=== PATIENT | male | born 1950 | race Caucasian/White ===

== ENCOUNTER 2017-05-01 21:31 | Emergency (ER) | payer MEDICARE, MEDICAID ==
[2017-05-01 21:43] VITALS: BP 108/88
[2017-05-01] MEDS ORDERED: Sodium Chloride 0.9% 10 ML Syringe FLUSH PRN (22:06)
[2017-05-01] MEDS ORDERED: Sodium Chloride 0.9% 1,000 ML IV ONE (22:11)
--- NOTE | 2017-05-01 22:27 | EDM.PDOC ---
ED HPI GENERAL MEDICAL PROBLEM - General Chief Complaint: General Stated Complaint: TROUBLE BREATHING Time Seen by Provider: 05/01/17 21:50 Source of Information: Reports: Patient, Senior Living Records, Other History Limitations: Reports: Other (limited cognition) - History of Present Illness INITIAL COMMENTS - FREE TEXT/NARRATIVE: c/o sob x 1d pt is a former smoker on home O2 at 2 l/min via [place] with h/o COPD and schizophrenia, he was seen by PCP Dr Pérez today with dx of bronchitis and UTI, CxR done, told he did not have a pneumonia, hospitalization recommended which pt declines, given antbx's IM x 2 as per prison staff from [place], had inc'd HR in office altho rate unknown pt comes into tonight requesting to be admitted, HR 171 here, regular intervals april, RBBB, rate decreases to 155 at times, remains regular no CP, no cough, talks complete sentences does show evidence of HF with inc'd edema, inc'd exp phase and slight wheeze possible pneumonia with rales RLL no prior CV ds per pt, [place] records list ASCVD however only cardiac med is ASA, EHR with no prior EKG, no prior troponin or BNP , no prior echo unknown how long pt has had RBBB staff states he has not had been hospitalized in [place], has been at [place] since 2001, hospitalized x 2 here in last several yrs SBP 105 initial, then was 117 rhythm unlikely afib with RVR given very regular intervals, unlikely VT with aberrancy given variable rate, SVT possible altho p-waves are discernable on rhythm strip when HR slows, OH interval 0.18 pt being tx'ed with Z-iris and cephalexin, has had a dose of each today, not on a oral steroid had a suprapubic catheter in past, not now - Related Data Allergies Allergy/AdvReac Type Severity Reaction Status Date / Time nitrofurantoin Allergy Hives Verified 05/01/17 21:37 macrocrystalline [From Macrodantin] norfloxacin Allergy Hives Verified 05/01/17 21:37 Penicillins Allergy Hives Verified 05/01/17 21:37 Home Meds: Home Meds Aspirin [Adult Low Dose Aspirin EC] 81 mg PO DAILY 02/06/13 [History] Clobetasol [Temovate 0.05% Crm] 1 applic TOP KARSTEN@08,20 02/06/13 [History] OLANZapine [Olanzapine] 15 mg PO BID 02/06/13 [History] Sertraline HCl 200 mg PO DAILY 02/06/13 [History] Budesonide/Formoterol Fumarate [Symbicort 160-4.5 Mcg Inhaler] 2 puff INH BID [History] Hydrophilic Ointment [Aquaphilic Ointment] 1 applic TOP BID 04/12/16 [History] Psyllium Husk [Fiber Laxative] 1 tbsp PO DAILY 04/12/16 [History] Tamsulosin HCl 1 tab PO DAILY 04/12/16 [History] diphenhydrAMINE [Benadryl] 25 mg PO BEDTIME 04/12/16 [History] Finasteride 5 mg PO DAILY 04/13/16 [History] Albuterol/Ipratropium [Combivent Respimat] 1 puff INH QID 05/01/17 [History] Azithromycin [Zithromax] 250 mg PO DAILY 05/01/17 [History] Cephalexin 500 mg PO TID 05/01/17 [History] Multivits w-Fe,Other Min/Lut [Theratrum Complete] 1 each PO DAILY 05/01/17 [ History] Past Medical History HEENT History: Reports: Cataract, Macular Degeneration Other HEENT History: myopia, presbyopia,sensorineural hearing loss, bilateral retinal scarring, astigmatism. Loss of hearing in left ear Cardiovascular History: Reports: High Cholesterol Other Cardiovascular History: hyperlipidemia Respiratory History: Reports: Asthma, COPD Gastrointestinal History: Reports: Colon Polyp, Diverticulosis, Gastritis Genitourinary History: Reports: BPH Other Genitourinary History: urethral stricture, urinary retention, urinary retention, urinary incontinence, UTI, bilateral testes atrophy, perineal cystostomy, suprapubic cystostomy (voids perineally), hx of suprapubic cystostomy, hx partial cystectomy, mesh placement at the suprapubic site, hx of urethrotomy, has benign prostatic hyperthropy. Musculoskeletal History: Reports: Amputation, Fracture Other Musculoskeletal History: has prosthetic right lower leg.Pelvic fx. Neurological History: Reports: Cerebral Palsy Other Neuro History: has moderate intellectual disabilities, Psychiatric History: Reports: Depression, Schizophrenia Oncologic (Cancer) History: Reports: Other (See Below) Other Oncologic History: tubular adenoma (pre-malignant polyp) Dermatologic History: Reports: Psoriasis - Infectious Disease History Infectious Disease History: Reports: Chicken Pox, Measles - Past Surgical History Respiratory Surgical History: Reports: Tracheostomy Other Respiratory Surgeries/Procedures: pt was a former smoker for 20 years consuming 5 packs a day. Quit smoking 3 years ago. Social & Family History - Family History Family Medical History: Noncontributory - Tobacco Use Smoking Status *Q: Unknown Ever Smoked Years of Tobacco use: 40 Packs/Tins Daily: 4 Used Tobacco, but Quit: Yes Month Tobacco Last Used: 2013 Second Hand Smoke Exposure: No - Caffeine Use Caffeine Use: Reports: None - Alcohol Use Days Per Week of Alcohol Use: 0 - Recreational Drug Use Recreational Drug Use: No ED ROS GENERAL - Review of Systems Review Of Systems: See Below Constitutional: Reports: No Symptoms HEENT: Reports: No Symptoms Respiratory: Reports: Shortness of Breath Cardiovascular: Reports: No Symptoms. Denies: Chest Pain Endocrine: Reports: No Symptoms GI/Abdominal: Reports: No Symptoms : Reports: No Symptoms Musculoskeletal: Reports: No Symptoms Skin: Reports: No Symptoms Neurological: Reports: No Symptoms Psychiatric: Reports: No Symptoms Hematologic/Lymphatic: Reports: No Symptoms Immunologic: Reports: No Symptoms ED EXAM, GENERAL - Physical Exam Exam: See Below Exam Limited By: No Limitations General Appearance: Alert, WD/WN, No Apparent Distress, Other (pleasant, conversant, talks complete sentences, good eye contact, no cough, tachypnea) Eye Exam: Bilateral Eye: Normal Inspection Ears: Normal External Exam Nose: Normal Inspection, Normal Mucosa, No Blood Throat/Mouth: Normal Inspection, Normal Lips, Normal Gums, Normal Oropharynx, Normal Voice, No Airway Compromise Head: Atraumatic, Normocephalic Neck: Normal Inspection, Supple, Non-Tender, Full Range of Motion Respiratory/Chest: Other (rales up 1/3 at R base, mild inc'd exp phase throughout, mild use accessory muscles, no retractions). No: Wheezing Cardiovascular: No Gallop, No JVD, No Rub, Tachycardia, Systolic Murmur, Other ( 2/6 YEHUDA at LSB, quiet precordium PMI not displaced). No: Gallop/S3, Gallop/S4, Extra Beats GI/Abdominal: Normal Bowel Sounds, Soft, Non-Tender, No Organomegaly, No Distention, No Mass Back Exam: Normal Inspection, Full Range of Motion, NT Extremities: Other (RLE prosthesis, 2+ edema to L knee, 1+ edema to groin b/l, trace presacral edema) Neurological: Alert, Oriented, CN II-XII Intact, Normal Cognition, No Motor/ Sensory Deficits Psychiatric: Normal Affect, Normal Mood Skin Exam: Warm, Dry, Intact, Normal Color, No Rash Lymphatic: No Adenopathy Course - Vital Signs Last Recorded V/S: Last Vital Signs Temp 36.7 C 05/01/17 21:48 Pulse 179 H 05/01/17 21:48 Resp 24 H 05/01/17 21:48 BP 108/88 05/01/17 21:48 Pulse Ox 95 05/01/17 21:48 - Orders/Labs/Meds Orders: Active Orders 24 hr Category Date Time Status EKG Documentation Completion [RC] ASDIRECTED Care 05/01/17 21:58 Active Ang Chest [CT] Stat Exams 05/01/17 23:29 Taken Chest 2V [CR] Stat Exams 05/01/17 22:02 Taken Saline Lock Insert [OM.PC] Routine Oth 05/01/17 22:06 Ordered EKG 12 Lead [EK] Routine Ther 05/01/17 21:57 Ordered Labs: Laboratory Tests 05/01/17 05/01/17 05/01/17 Range/Units 10:39 22:05 22:05 WBC 11.1 (4.5-12.0) X10-3/uL RBC 3.90 L (4.30-5.75) x10(6)uL Hgb 11.7 (11.5-15.5) g/dL Hct 33.9 (30.0-51.3) % MCV 86.9 (80-96) fL MCH 29.9 (27.7-33.6) pg MCHC 34.4 (32.2-35.4) g/dL RDW 12.9 (11.5-15.5) % Plt Count 280 (125-369) X10(3)uL MPV 8.8 (7.4-10.4) fL Add Manual Diff Yes Neutrophils % (Manual) 74 (46-82) % Band Neutrophils % 5 (0-6) % Lymphocytes % (Manual) 11 L (13-37) % Monocytes % (Manual) 10 (4-12) % POC VBG pH (7.31-7.41) POC VBG pCO2 (41-51) mmHG POC VBG HCO3 (23-28) mmol/L POC VBG Total CO2 (24-29) mmol/L POC VBG Base Excess (-2-3) mmol/L Sodium 144 (135-145) mmol/L Potassium 3.5 (3.5-5.3) mmol/L Chloride 106 (100-110) mmol/L Carbon Dioxide 31 (21-32) mmol/L BUN 12 (7-18) mg/dL Creatinine 0.8 (0.70-1.30) mg/dL Est Cr Clr Drug Dosing 88.38 mL/min Estimated GFR (MDRD) > 60 (>60) BUN/Creatinine Ratio 15.0 (9-20) Glucose 185 H (80-116) mg/dL Lactic Acid (0.4-2.2) mmol/L Calcium 9.1 (8.6-10.2) mg/dL Magnesium (1.8-2.5) mg/dL Total Bilirubin 0.1 (0.1-1.3) mg/dL AST 38 H (5-25) IU/L ALT 69 H (12-36) U/L Alkaline Phosphatase 81 (56-112) IU/L Troponin I (<0.017-0.056) ng/mL C-Reactive Protein (0.5-0.9) mg/dL NT-Pro-B Natriuret Pep (<=125) pg/mL Total Protein 6.2 (6.0-8.0) g/dL Albumin 2.3 L (3.2-4.6) g/dL Globulin 3.9 g/dL Albumin/Globulin Ratio 0.6 TSH, Ultra Sensitive (0.36-3.74) IU/mL Urine Color Yellow (YELLOW) Urine Appearance Slightly cloudy (CLEAR) Urine pH 7.0 H (5.0-6.5) Ur Specific [place] 1.010 (1.010-1.025) Urine Protein Negative (NEGATIVE) mg/dL Urine Glucose (UA) Normal (NEGATIVE) mg/dL Urine Ketones Negative (NEGATIVE) mg/dL Urine Occult Blood Negative (NEGATIVE) Urine Nitrite Negative (NEGATIVE) Urine Bilirubin Negative (NEGATIVE) Urine Urobilinogen Normal (NEGATIVE) mg/dL Ur Leukocyte Esterase Large H (NEGATIVE) Urine RBC 0-5 (0) Urine WBC 5-10 (0) Ur Squamous Epith Cells Rare (NS,R,O) Urine Bacteria Few H (NS) 05/01/17 05/01/17 05/01/17 Range/Units 22:05 22:05 22:05 WBC (4.5-12.0) X10-3/uL RBC (4.30-5.75) x10(6)uL Hgb (11.5-15.5) g/dL Hct (30.0-51.3) % MCV (80-96) fL MCH (27.7-33.6) pg MCHC (32.2-35.4) g/dL RDW (11.5-15.5) % Plt Count (125-369) X10(3)uL MPV (7.4-10.4) fL Add Manual Diff Neutrophils % (Manual) (46-82) % Band Neutrophils % (0-6) % Lymphocytes % (Manual) (13-37) % Monocytes % (Manual) (4-12) % POC VBG pH (7.31-7.41) POC VBG pCO2 (41-51) mmHG POC VBG HCO3 (23-28) mmol/L POC VBG Total CO2 (24-29) mmol/L POC VBG Base Excess (-2-3) mmol/L Sodium (135-145) mmol/L Potassium (3.5-5.3) mmol/L Chloride (100-110) mmol/L Carbon Dioxide (21-32) mmol/L BUN (7-18) mg/dL Creatinine (0.70-1.30) mg/dL Est Cr Clr Drug Dosing mL/min Estimated GFR (MDRD) (>60) BUN/Creatinine Ratio (9-20) Glucose (80-116) mg/dL Lactic Acid 1.6 (0.4-2.2) mmol/L Calcium (8.6-10.2) mg/dL Magnesium 2.2 (1.8-2.5) mg/dL Total Bilirubin (0.1-1.3) mg/dL AST (5-25) IU/L ALT (12-36) U/L Alkaline Phosphatase (56-112) IU/L Troponin I < 0.017 L (<0.017-0.056) ng/mL C-Reactive Protein 11.9 H* (0.5-0.9) mg/dL NT-Pro-B Natriuret Pep 990 H (<=125) pg/mL Total Protein (6.0-8.0) g/dL Albumin (3.2-4.6) g/dL Globulin g/dL Albumin/Globulin Ratio TSH, Ultra Sensitive (0.36-3.74) IU/mL Urine Color (YELLOW) Urine Appearance (CLEAR) Urine pH (5.0-6.5) Ur Specific [place] (1.010-1.025) Urine Protein (NEGATIVE) mg/dL Urine Glucose (UA) (NEGATIVE) mg/dL Urine Ketones (NEGATIVE) mg/dL Urine Occult Blood (NEGATIVE) Urine Nitrite (NEGATIVE) Urine Bilirubin (NEGATIVE) Urine Urobilinogen (NEGATIVE) mg/dL Ur Leukocyte Esterase (NEGATIVE) Urine RBC (0) Urine WBC (0) Ur Squamous Epith Cells (NS,R,O) Urine Bacteria (NS) 05/01/17 05/01/17 Range/Units 22:05 22:05 WBC (4.5-12.0) X10-3/uL RBC (4.30-5.75) x10(6)uL Hgb (11.5-15.5) g/dL Hct (30.0-51.3) % MCV (80-96) fL MCH (27.7-33.6) pg MCHC (32.2-35.4) g/dL RDW (11.5-15.5) % Plt Count (125-369) X10(3)uL MPV (7.4-10.4) fL Add Manual Diff Neutrophils % (Manual) (46-82) % Band Neutrophils % (0-6) % Lymphocytes % (Manual) (13-37) % Monocytes % (Manual) (4-12) % POC VBG pH 7.47 H (7.31-7.41) POC VBG pCO2 38.1 L (41-51) mmHG POC VBG HCO3 27.7 (23-28) mmol/L POC VBG Total CO2 29 (24-29) mmol/L POC VBG Base Excess 4 H (-2-3) mmol/L Sodium (135-145) mmol/L Potassium (3.5-5.3) mmol/L Chloride (100-110) mmol/L Carbon Dioxide (21-32) mmol/L BUN (7-18) mg/dL Creatinine (0.70-1.30) mg/dL Est Cr Clr Drug Dosing mL/min Estimated GFR (MDRD) (>60) BUN/Creatinine Ratio (9-20) Glucose (80-116) mg/dL Lactic Acid (0.4-2.2) mmol/L Calcium (8.6-10.2) mg/dL Magnesium (1.8-2.5) mg/dL Total Bilirubin (0.1-1.3) mg/dL AST (5-25) IU/L ALT (12-36) U/L Alkaline Phosphatase (56-112) IU/L Troponin I (<0.017-0.056) ng/mL C-Reactive Protein (0.5-0.9) mg/dL NT-Pro-B Natriuret Pep (<=125) pg/mL Total Protein (6.0-8.0) g/dL Albumin (3.2-4.6) g/dL Globulin g/dL Albumin/Globulin Ratio TSH, Ultra Sensitive 0.89 (0.36-3.74) IU/mL Urine Color (YELLOW) Urine Appearance (CLEAR) Urine pH (5.0-6.5) Ur Specific [place] (1.010-1.025) Urine Protein (NEGATIVE) mg/dL Urine Glucose (UA) (NEGATIVE) mg/dL Urine Ketones (NEGATIVE) mg/dL Urine Occult Blood (NEGATIVE) Urine Nitrite (NEGATIVE) Urine Bilirubin (NEGATIVE) Urine Urobilinogen (NEGATIVE) mg/dL Ur Leukocyte Esterase (NEGATIVE) Urine RBC (0) Urine WBC (0) Ur Squamous Epith Cells (NS,R,O) Urine Bacteria (NS) Meds: Medications Discontinued Medications Generic Name Dose Route Start Last Admin Trade Name Freq PRN Reason Stop Dose Admin Sodium Chloride 1,000 mls @ 999 mls/hr 05/01/17 22:11 05/01/17 22:17 Normal Saline IV 05/01/17 23:11 999 mls/hr .BOLUS ONE Administration Iopamidol 100 ml 05/01/17 23:52 05/01/17 23:55 Isovue-370 (76%) IV 05/01/17 23:53 100 ml ONETIME ONE Administration Methylprednisolone Sodium Succinate 125 mg 05/01/17 22:56 05/01/17 23:04 Solu-Medrol IVPUSH 05/01/17 22:57 125 mg ONETIME ONE Administration Sodium Chloride 10 ml 05/01/17 22:06 05/01/17 22:09 Saline Flush FLUSH 10 ml ASDIRECTED PRN Administration Keep Vein Open - Re-Assessments/Exams Free Text/Narrative Re-Assessment/Exam: 05/01/17 22:41 CxR, 2 view, with no definite infiltrate, no cardiomegaly, no pulmonary congestion, hyperinflated lung hgb 11.7 which may be dilutional (was 12.7 one yr ago) AST/ALT 38/69 with no comparison, etiology uncertain CRP 11.9 suggestion more than bronchitis yet WBC 11.1 (was 4.0 one yr ago) and slight L shift with 74% segs and 5% bands trop <0.017, BNP 990 c/w tachycardia mild alkalosis with pH 7.47, yet pCO2 38 in context of RR 24 lactic acid 1.6 pt has inc'd edema of LEs as well as presacral edema, possibly d/t low albumin 2.3 yet also has dec'd turgor UE and no obvious edema in lungs Free Text/Narrative Re-Assessment/Exam: 05/01/17 23:25 d/w Dr Salamanca typing section chief at [facility] who accepted pt in transfer, pt remains with persist unexplained ST, has had SBP of 91 and 97, even one of 82, altho last vss showed BP 111/71, HR 157, PO 98% on 4 l/min and RR 23 at 23:24. Dr Salamanca recommended a chest CTA which we will obtain prior to transfer, 18 gauge placed, pt going for chest CTA now Departure - Departure Time of Disposition: 23:30 Disposition: DC/Tfer to Acute Hospital 02 Clinical Impression: COPD exacerbation, Elevated C-reactive protein (CRP), Edema due to malnutrition , Hypoalbuminemia, Sinus tachycardia, Elevated LFTs - Discharge Information Referrals: Juvencio Terrell MD [Primary Care Provider] - Forms: ED Department Discharge - My Orders Last 24 Hours: My Active Orders 05/01/17 21:57 EKG 12 Lead [EK] Routine 05/01/17 21:58 EKG Documentation Completion [RC] ASDIRECTED 05/01/17 22:02 Chest 2V [CR] Stat 05/01/17 22:06 Saline Lock Insert [OM.PC] Routine 05/01/17 23:29 Ang Chest [CT] Stat - Assessment/Plan Last 24 Hours: My Active Orders 05/01/17 21:57 EKG 12 Lead [EK] Routine 05/01/17 21:58 EKG Documentation Completion [RC] ASDIRECTED 05/01/17 22:02 Chest 2V [CR] Stat 05/01/17 22:06 Saline Lock Insert [OM.PC] Routine 05/01/17 23:29 Ang Chest [CT] Stat
[2017-05-01] MEDS ORDERED: methylPREDNISolone Sodium Succinate 125 MG/2 ML SDV IVPUSH ONE (22:56)
[2017-05-01] MEDS ORDERED: Iopamidol 755 Mg/ML 100 ML Bottle IV ONE (23:52)
--- NOTE | 2017-05-03 11:46 | CR ---
INDICATION: Short of breath. CHEST: PA and lateral views of the chest 05/01/2017 were compared with 2016 and 04/12/2016, again revealing the heart to be normal in size and shape. Calcifications are noted in the arch of the aorta, as previously. Overlying EKG leads are noted. Degenerative changes are noted in the lower middle thoracic spine. Somewhat flattened diaphragm leaves, prominent AP diameter, and hyperaeration all suggested COPD. An active infiltrate or effusion was not identified with markings appearing unchanged from previous examinations. IMPRESSION: 1. No definite acute process. 2. Probable COPD - correlate clinically. 3. ASD aorta. 4. DJD spine. MTDD
== END 2017-05-02 00:38 ==
LOC: FB.ED 21:31
DX: J44.1 Chronic obstructive pulmonary disease with (acute) exacerbation (principal); R79.89 Other specified abnormal findings of blood chemistry; R60.9 Edema, unspecified; E46 Unspecified protein-calorie malnutrition; E88.09 Other disorders of plasma-protein metabolism, not elsewhere classified; R00.0 Tachycardia, unspecified; E78.00 Pure hypercholesterolemia, unspecified; Z88.0 Allergy status to penicillin; Z88.1 Allergy status to other antibiotic agents; Z79.899 Other long term (current) drug therapy; Z79.82 Long term (current) use of aspirin; Z87.891 Personal history of nicotine dependence
CPT/HCPCS: 36415; 71046; 71275; 80053; 81001; 82803; 83605; 83735; 83880; 84443; 84484; 85025; 86140; 93005; 96361; 96374; 99285; J2930; J7040; J7050; Q9967; 93010; J7030

== ENCOUNTER 2017-06-19 11:40 | Inpatient (IN) | payer MEDICARE, MEDICAID ==
[2017-06-20] MEDS ORDERED: Nitroglycerin 0.4 MG Tab.SL SL PRN (14:18)
[2017-06-20] MEDS ORDERED: Albuterol 0.083% 2.5 MG/3 ML Neb Soln NEB PRN (14:18)
[2017-06-20] MEDS ORDERED: Sodium Chloride 0.65% Nasal Spray 45 ML Bottle NASBOTH PRN (14:18)
[2017-06-20] MEDS ORDERED: COAL TAR TOP SCH (14:30)
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
[2017-06-20] MEDS: Sodium Chloride 0.9% 10 ML Syringe FLUSH SCH ×2 (15:14→21:45)
[2017-06-20] MEDS: Cefepime 2 GM Vial IVPUSH SCH ×2 (15:15→21:44)
[2017-06-20] MEDS ORDERED: Calcium Carbonate 500 MG Tab.Chew PO PRN (15:15)
[2017-06-20] MEDS: Diltiazem 120 MG Cap.CD PO SCH (15:30)
[2017-06-20] MEDS ORDERED: Levalbuterol HCl 1.25 MG/3 ML Neb INH PRN (15:31)
[2017-06-20] MEDS ORDERED: Albuterol/Ipratropium 3.0-0.5 MG/3 ML Neb Soln NEB SCH (17:00)
[2017-06-20] MEDS: Ipratropium 0.02% 0.5 MG/2.5 ML Neb Soln INH SCH ×2 (17:19→20:12)
[2017-06-20] MEDS: Levalbuterol HCl 1.25 MG/3 ML Neb INH SCH ×2 (17:19→20:12)
[2017-06-20] MEDS: Pantoprazole 40 MG Tab.CR PO SCH (17:20)
[2017-06-20] MEDS: Famotidine 10 MG Tab PO SCH (20:13)
[2017-06-20] MEDS: Arformoterol 15 MCG/2 ML Neb Soln INH SCH (20:13)
[2017-06-20] MEDS: Ferrous Sulfate 325 MG Tab PO SCH (20:13)
[2017-06-20] MEDS: diphenhydrAMINE 25 MG Cap PO SCH (20:13)
[2017-06-20] MEDS: OLANZapine 5 MG Tab PO SCH (20:14)
[2017-06-20] MEDS: Budesonide 0.5 MG/2 ML Neb Susp INH SCH (20:14)
[2017-06-21] MEDS: Cefepime 2 GM Vial IVPUSH SCH ×3 (05:34→21:02)
[2017-06-21] MEDS: Sodium Chloride 0.9% 10 ML Syringe FLUSH SCH ×5 (05:34→21:03)
[2017-06-21] MEDS: Levalbuterol HCl 1.25 MG/3 ML Neb INH SCH ×4 (07:23→20:49)
[2017-06-21] MEDS: Ipratropium 0.02% 0.5 MG/2.5 ML Neb Soln INH SCH ×4 (07:23→20:49)
[2017-06-21] MEDS: Pantoprazole 40 MG Tab.CR PO SCH ×2 (07:48→18:00)
[2017-06-21] MEDS: predniSONE 20 MG Tab PO SCH (08:13)
[2017-06-21] MEDS: Diltiazem 120 MG Cap.CD PO SCH (08:14)
[2017-06-21] MEDS: Ferrous Sulfate 325 MG Tab PO SCH ×2 (08:15→20:42)
[2017-06-21] MEDS: Tamsulosin 0.4 MG Cap.ER PO SCH (08:15)
[2017-06-21] MEDS: Sertraline 100 MG Tab PO SCH (08:16)
[2017-06-21] MEDS: OLANZapine 5 MG Tab PO SCH ×2 (08:16→20:50)
[2017-06-21] MEDS: Famotidine 10 MG Tab PO SCH ×2 (08:16→20:50)
[2017-06-21] MEDS: Finasteride 5 MG Tab PO SCH (08:16)
[2017-06-21] MEDS: Arformoterol 15 MCG/2 ML Neb Soln INH SCH ×2 (08:48→21:21)
[2017-06-21] MEDS: Budesonide 0.5 MG/2 ML Neb Susp INH SCH ×2 (08:48→21:05)
[2017-06-21] MEDS: Mineral Oil/Petrolatum,Hydrophilic Ointment 100 GM Jar TOP SCH ×2 (13:53→20:41)
[2017-06-21] MEDS: diphenhydrAMINE 25 MG Cap PO SCH (20:50)
[2017-06-21] MEDS: Acetaminophen 325 MG Tab PO PRN (20:59)
[2017-06-22] MEDS: Cefepime 2 GM Vial IVPUSH SCH ×3 (05:51→21:55)
[2017-06-22] MEDS: Levalbuterol HCl 1.25 MG/3 ML Neb INH SCH ×4 (07:06→21:24)
[2017-06-22] MEDS: Ipratropium 0.02% 0.5 MG/2.5 ML Neb Soln INH SCH ×4 (07:06→21:17)
[2017-06-22] MEDS: Pantoprazole 40 MG Tab.CR PO SCH ×2 (07:23→17:13)
[2017-06-22] MEDS: predniSONE 20 MG Tab PO SCH (08:39)
[2017-06-22] MEDS: Diltiazem 120 MG Cap.CD PO SCH (08:39)
[2017-06-22] MEDS: Tamsulosin 0.4 MG Cap.ER PO SCH (08:40)
[2017-06-22] MEDS: Ferrous Sulfate 325 MG Tab PO SCH ×2 (08:40→21:20)
[2017-06-22] MEDS: Mineral Oil/Petrolatum,Hydrophilic Ointment 100 GM Jar TOP SCH ×2 (08:41→21:31)
[2017-06-22] MEDS: Sertraline 100 MG Tab PO SCH (08:42)
[2017-06-22] MEDS: Famotidine 10 MG Tab PO SCH ×2 (08:42→21:21)
[2017-06-22] MEDS: Finasteride 5 MG Tab PO SCH (08:42)
[2017-06-22] MEDS: OLANZapine 5 MG Tab PO SCH ×2 (08:42→21:28)
[2017-06-22] MEDS: Arformoterol 15 MCG/2 ML Neb Soln INH SCH ×2 (08:46→21:27)
[2017-06-22] MEDS: Budesonide 0.5 MG/2 ML Neb Susp INH SCH ×2 (08:46→21:27)
[2017-06-22] MEDS: Sodium Chloride 0.9% 10 ML Syringe FLUSH SCH ×2 (14:36→14:45)
[2017-06-22] MEDS: diphenhydrAMINE 25 MG Cap PO SCH (21:23)
[2017-06-23] MEDS: Cefepime 2 GM Vial IVPUSH SCH ×3 (05:49→21:44)
[2017-06-23] MEDS: Ipratropium 0.02% 0.5 MG/2.5 ML Neb Soln INH SCH ×4 (07:04→20:03)
[2017-06-23] MEDS: Levalbuterol HCl 1.25 MG/3 ML Neb INH SCH ×4 (07:04→20:07)
[2017-06-23] MEDS: Pantoprazole 40 MG Tab.CR PO SCH ×2 (07:45→17:37)
[2017-06-23] MEDS: Diltiazem 120 MG Cap.CD PO SCH (08:27)
[2017-06-23] MEDS: predniSONE 20 MG Tab PO SCH (08:27)
[2017-06-23] MEDS: Famotidine 10 MG Tab PO SCH ×2 (08:28→20:06)
[2017-06-23] MEDS: Tamsulosin 0.4 MG Cap.ER PO SCH (08:28)
[2017-06-23] MEDS: Mineral Oil/Petrolatum,Hydrophilic Ointment 100 GM Jar TOP SCH ×2 (08:28→20:06)
[2017-06-23] MEDS: OLANZapine 5 MG Tab PO SCH ×2 (08:28→20:07)
[2017-06-23] MEDS: Ferrous Sulfate 325 MG Tab PO SCH ×2 (08:28→20:05)
[2017-06-23] MEDS: Finasteride 5 MG Tab PO SCH (08:29)
[2017-06-23] MEDS: Sertraline 100 MG Tab PO SCH (08:29)
[2017-06-23] MEDS: Budesonide 0.5 MG/2 ML Neb Susp INH SCH ×2 (08:40→20:07)
[2017-06-23] MEDS: Arformoterol 15 MCG/2 ML Neb Soln INH SCH ×2 (08:40→20:05)
[2017-06-23] MEDS: Sodium Chloride 0.9% 10 ML Syringe FLUSH SCH ×4 (14:55→21:51)
[2017-06-23] MEDS: diphenhydrAMINE 25 MG Cap PO SCH (20:04)
[2017-06-24] MEDS: Cefepime 2 GM Vial IVPUSH SCH ×3 (05:51→21:11)
[2017-06-24] MEDS: Sodium Chloride 0.9% 10 ML Syringe FLUSH SCH ×2 (05:53→21:12)
[2017-06-24] MEDS: Pantoprazole 40 MG Tab.CR PO SCH ×3 (05:59→17:21)
[2017-06-24] MEDS: predniSONE 10 MG Tab PO SCH (08:09)
[2017-06-24] MEDS: Acetaminophen 325 MG Tab PO PRN (08:09)
[2017-06-24] MEDS: Tamsulosin 0.4 MG Cap.ER PO SCH (08:09)
[2017-06-24] MEDS: Mineral Oil/Petrolatum,Hydrophilic Ointment 100 GM Jar TOP SCH ×2 (08:10→20:47)
[2017-06-24] MEDS: Finasteride 5 MG Tab PO SCH (08:10)
[2017-06-24] MEDS: OLANZapine 5 MG Tab PO SCH ×2 (08:10→20:48)
[2017-06-24] MEDS: Sertraline 100 MG Tab PO SCH (08:10)
[2017-06-24] MEDS: Famotidine 10 MG Tab PO SCH ×2 (08:10→20:48)
[2017-06-24] MEDS: Ferrous Sulfate 325 MG Tab PO SCH ×2 (08:10→20:48)
[2017-06-24] MEDS: Clobetasol 0.05% Crm 15 GM Tube TOP SCH ×2 (08:11→20:19)
[2017-06-24] MEDS: Diltiazem 120 MG Cap.CD PO SCH (08:15)
[2017-06-24] MEDS: Ipratropium 0.02% 0.5 MG/2.5 ML Neb Soln INH SCH ×4 (09:15→20:34)
[2017-06-24] MEDS: Levalbuterol HCl 1.25 MG/3 ML Neb INH SCH ×4 (09:20→20:34)
[2017-06-24] MEDS: Budesonide 0.5 MG/2 ML Neb Susp INH SCH ×2 (09:28→20:57)
[2017-06-24] MEDS: Arformoterol 15 MCG/2 ML Neb Soln INH SCH ×2 (09:28→20:57)
--- OUTSIDE RECORDS SUMMARY | 2017-06-24 15:16 | XMSREPORT | Summary of Care ---
:1950 Author Organization [facility] Address [address] [place] [address] Phone Care Team Providers Name Role Phone Juvencio Terrell MD Primary Care Provider Juvencio Terrell MD Attributed Provider Reason for Visit Reason Comments Breathing Problem Patient c/o breathing problems that he was hospitalized for last month and he reports that it has not gotten any better Auth/Cert Status Reason Specialty Diagnoses / Procedures Referred By Contact Referred To Contact Encounter Details Date Type Department Care Team Description 06/12/2017 - Hospital Encounter [facility] Luis Garcia MD [address] [place] [address] [phone] Acute exacerbation 06/20/2017 [facility] Ariel Hernandez W, DO [address] [place] [address] [phone] of chronic [address] [place] [address] Max Cardona MD [address] [place] [address] [phone] [place] [address] Tessie Perez MD [address] [place] [address] [phone] pulmonary disease [phone] Alfredo Baker MD [address] [place] [address] [phone] (COPD) Akil Smith MD [address] [place] [phone] Allergies Active Allergy Reactions Severity Noted Date Comments Penicillin Hives (High) High 08/13/2011 Has tolerated ceftriaxone Nitrofurantoin Hives (High) High 08/13/2011 Norfloxacin Hives (High) High 08/13/2011 Hmg-Coa-R Inhibitors Statin Contraindication - 06/01/2015 Diarrhea Intolerance as of this encounter Medications Prescription Sig. Disp. Refills Start End Status Date Date coal tar extract Apply topically Active (CUTAR) 7.5 % OIL Apply as directed by physician 4 times weekly to hands. psyllium (METAMUCIL) Take 1 539 g 6 01/20/20 Active powderIndications: tablespoonful by 15 Frequent loose mouth 1 time per stools day. Multiple Vitamin Take 1 tablet by 90 tablet 3 01/20/20 Active (MULTI-VITAMIN mouth 1 time per 15 DAILY) day. TABSIndications: Diverticulosis of sigmoid colon saline nasal spray [place] 1 spray into 1 Bottle 11 06/13/19 Active (AYR,OCEAN) 0.65 % each nostril every 17 nasal 2 hours as needed sprayIndications: for congestion Nasal congestion formoterol Inhale 1 nebule 1480 mL 0 05/07/19 Active (PERFOROMIST) 20 (20 mcg) by 18 019 MCG/2ML inhalation nebulization 2 solutionIndications: times a day Pulmonary emphysema, unspecified emphysema type budesonide Inhale 1 nebule 1480 mL 0 05/07/19 Active (PULMICORT) 0.5 mg/2 (0.5 mg) by 18 019 mL inhalation nebulization 2 solutionIndications: times a day Pulmonary emphysema, unspecified emphysema type raNITIdine Take 1 tablet (75 60 tablet 0 05/18/19 Active (ZANTAC-75) 75 mg mg) by mouth 2 18 tabletIndications: times a day Gastroesophageal reflux disease without esophagitis AQUAPHOR (AQUAPHOR Apply 1 1 Tube 0 06/20/19 Active HEALING) ointment application to 18 affected area 2 times a day Apply to hands clobetasol USE TWICE A DAY ON 45 g 11 04/25/20 Active propionate [id number] EACH 18 (TEMOVATE) 0.05 % WEEK INDEFINATELY creamIndications: AM,PM PSORIASIS Psoriasis (on hands and legs with spots) diphenhydrAMINE Take 1 capsule (25 20 capsule 0 04/25/20 Active (BENADRYL) 25 mg mg) by mouth every 18 capsule night at bedtime finasteride Take 1 tablet (5 30 tablet 0 04/25/20 Active (PROSCAR) 5 MG mg) by mouth 1 18 tabletIndications: time a day in the Bladder stone, morning Incomplete bladder emptying, Acute lower UTI (urinary tract infection), Post-traumatic bulbous urethral stricture, Enlarged prostate with urinary obstruction, Lower urinary tract symptoms (LUTS) OLANZapine (ZYPREXA) Take 1 tablet (15 15 tablet 0 04/25/20 Active 15 mg mg) by mouth 2 18 tabletIndications: times a day Paranoid schizophrenia sertraline (ZOLOFT) Take 2 tablets 30 tablet 0 04/25/20 Active 100 mg (200 mg) by mouth 18 tabletIndications: 1 time a day in MDD (recurrent major the morning depressive disorder) in remission tamsulosin (FLOMAX) Take 1 capsule 30 capsule 0 04/25/20 Active 0.4 mg (0.4 mg) by mouth 18 capsuleIndications: 1 time a day in Bladder stone, the morning Incomplete bladder emptying, Acute lower UTI (urinary tract infection), Post-traumatic bulbous urethral stricture, Enlarged prostate with urinary obstruction, Lower urinary tract symptoms (LUTS) calcium carbonate Take 1 tablet (500 90 tablet 0 04/25/20 Active (TUMS) 500 MG mg) by mouth 4 18 chewable times a day as tabletIndications: needed for Upper GI bleed indigestion ferrous sulfate (65 Take 1 tablet (325 30 tablet 0 04/25/20 Active MG FE PER 325 MG mg) by mouth 2 18 TABLET) 325 mg times a day tabletIndications: Upper GI bleed omeprazole Take 1 capsule (20 90 capsule 3 04/25/20 Active (PRILOSEC) 20 mg mg) by mouth 2 18 capsuleIndications: times a day before Upper GI bleed meals sodium chloride 0.9% Administer 10 mL intravenously As often as necessary for other (Specify) (Flush infusion line before each antibiotic infusion and after each infusion completed) Flush infusion line before each antibiotic infusion and after each infusion completed. 20 syringe 1 06/18/19 Active prefilled 10 mL Flush line with heparin 300 units/ 3 mL after the last saline flush 18 syringe 0.9% SOLNIndications: COPD (chronic obstructive pulmonary disease) cefepime (MAXIPIME) Administer 2,000 0 06/18/19 Active 2,000 mg in sodium mg intravenously 18 chloride 0.9% 50 Every 8 hours mLIndications: COPD (chronic obstructive pulmonary disease) nitroglycerin Dissolve 1 tablet 0 06/20/19 Active (NITROSTAT) 0.4 mg (0.4 mg) under the 18 019 sublingual tongue Every 5 tabletIndications: minutes as needed Chest pain, for chest pain May unspecified type repeat every 5 minutes for a total of 3 doses. predniSONE 20 mg 20 mg daily for 3 5 tablet 0 06/21/19 Active tabletIndications: days then 10 mg 18 Pulmonary emphysema, daily for 3 days unspecified then stop emphysema type albuterol-ipratropiu Inhale 1 unit-dose 1620 mL 4 06/21/19 Active m (DUO-NEB) 2.5-0.5 (3 mL) by 18 019 mg/3 mL inhalation nebulization 4 solutionIndications: times a day Acute exacerbation of chronic obstructive pulmonary disease (COPD) albuterol Inhale 1 nebule 1 box 0 06/21/19 Active (PROVENTIL) (2.5 (2.5 mg) by 18 019 mg/3mL) 0.083% nebulization every inhalation 2 hours as needed solutionIndications: for shortness of COPD (chronic breath or wheezing obstructive pulmonary disease), Pulmonary emphysema, unspecified emphysema type AQUAPHOR (AQUAPHOR Apply at least 420 g 10/31/19 Discontinued HEALING) ointment twice daily to 13 018 affected skin diphenhydrAMINE Take one capsule 30 capsule 0 06/12/19 Discontinued (BENADRYL) 25 mg by mouth before 14 018 capsule bedtime. clobetasol USE TWICE A DAY ON 45 g 06/20/19 Discontinued propionate [id number] EACH 17 018 (TEMOVATE) 0.05 % WEEK INDEFINATELY creamIndications: [AM,PM] PSORIASIS Psoriasis finasteride TAKE ONE TABLET 30 tablet 11 02/14/20 Discontinued (PROSCAR) 5 MG EVERY DAY [7AM] 17 018 tabletIndications: URINARY Bladder stone, Incomplete bladder emptying, Acute lower UTI (urinary tract infection), Post-traumatic bulbous urethral stricture, Enlarged prostate with urinary obstruction, Lower urinary tract symptoms (LUTS) tamsulosin (FLOMAX) TAKE ONE CAPSULE 28 capsule 12 02/14/20 Discontinued 0.4 mg EVERY DAY [7AM] 018 capsuleIndications: URINARY Bladder stone, Incomplete bladder emptying, Acute lower UTI (urinary tract infection), Post-traumatic bulbous urethral stricture, Enlarged prostate with urinary obstruction, Lower urinary tract symptoms (LUTS) sertraline (ZOLOFT) TAKE 2 TABLETS 180 tablet 1 03/14/19 Discontinued 100 mg (200MG) BY MOUTH 018 tabletIndications: ONCE DAILY IN THE MDD (recurrent major MORNING [7AM] depressive disorder) ANTIDEPRESSANT in remission OLANZapine (ZYPREXA) Take one 15 mg 180 tablet 1 03/14/19 Discontinued 15 mg tablet in am and 018 tabletIndications: one 15 mg tablet Paranoid in pm schizophrenia aspirin 81 mg Take 81 mg by Discontinued chewable tablet mouth 1 time per day ipratropium Inhale 1 unit-dose 2775 mL 0 05/07/19 Suspended (ATROVENT) 0.5 (0.5 mg) by 18 018 mg/2.5 mL inhalation nebulization 3 solutionIndications: times a day Pulmonary emphysema, unspecified emphysema type albuterol Inhale 1 nebule 1 box 0 05/07/19 Suspended (PROVENTIL) (2.5 (2.5 mg) by 18 018 mg/3mL) 0.083% nebulization 4 inhalation times a day as solutionIndications: needed for COPD (chronic shortness of obstructive breath or wheezing pulmonary disease), Pulmonary emphysema, unspecified emphysema type albuterol HFA Inhale 2 puffs 3 Inhaler 0 05/07/19 Suspended (PROVENTIL,PROAIR,VE orally Every 4 18 018 NTOLIN) 108 (90 hours as needed BASE) MCG/ACT for shortness of inhalerIndications: breath or wheezing COPD (chronic Shake well before obstructive using. pulmonary disease) betamethasone USE TWICE A DAY ON 45 g 5 05/28/19 Discontinued dipropionate [id number] EACH 18 018 (DIPROSONE) 0.05 % WEEK INDEFINATELY creamIndications: [AM,PM] PSORIASIS Psoriasis hEParin 100 units/mL Administer 3 mL 30 mL 0 06/18/19 injection (300 Units) 18 018 solutionIndications: intravenously As COPD (chronic often as necessary obstructive for other pulmonary disease) (Specify) (heparin 300 units/3 mL IV FLUSH after completion of each antibiotic infusion (after saline flush)) for up to 1 day heparin 300 units/3 mL IV FLUSH after completion of each antibiotic infusion (after saline flush) as of this encounter Active Problems Problem Noted Date Pseudomonas infection 06/17/2017 Upper GI bleed 06/17/2017 Overview: Grade C esophagitis Mass of upper lobe of right lung 06/17/2017 Mass of both adrenal glands 06/17/2017 COPD exacerbation 05/02/2017 Complicated UTI (urinary tract infection) 05/02/2017 Lower urinary tract symptoms (LUTS) 02/13/2017 Status post urethrostomy 07/26/2016 Obesity (BMI 30-39.9) 01/24/2016 MDD (major depressive disorder), recurrent, in full remission 11/17/2015 Enlarged prostate with urinary obstruction 10/26/2015 Incomplete bladder emptying 10/18/2015 Acute lower UTI (urinary tract infection) 04/27/2015 ASVD (arteriosclerotic vascular disease) 01/17/2015 Dysuria 10/13/2014 Psoriasis 01/31/2014 Diverticulosis of sigmoid colon 01/13/2014 Acute exacerbation of chronic obstructive pulmonary disease (COPD) 07/23/2013 Schizophrenia, paranoid 12/04/2012 Mild developmental delay 12/04/2012 COPD (chronic obstructive pulmonary disease) with emphysema 12/04/2012 Hyperlipidemia 12/04/2012 GERD (gastroesophageal reflux disease) 12/04/2012 Atrophy of testis 10/31/2006 Hearing loss 10/31/2006 Status post below knee amputation 11/16/2004 as of this encounter Resolved Problems Problem Noted Date Resolved Date Foul smelling urine 01/26/2016 04/29/2016 Bladder stone 10/18/2015 04/29/2016 Frequent loose stools 01/17/2015 04/29/2016 Lower urinary tract infectious disease 10/13/2014 04/29/2016 Closed fracture of proximal phalanx of right hand 06/10/2014 04/29/2016 Bacteremia 11/01/2009 12/04/2012 Urethral stricture 09/13/2009 04/29/2016 Urinary tract infection, site not specified 09/13/2009 12/04/2012 Hemorrhoids 11/16/2004 04/29/2016 as of this encounter Immunizations Name Dates Previously Given Next Due FLU VACCINE HIGH DOSE 65YR+ 12/14/2016, 12/09/2015, 12/18/2013 FLU VACCINE HIGH DOSE 65YR+(Fluzone) 12/19/2015, 12/13/2014 FLU VACCINE 12/17/2014 MULTIDOSE(3yr+Fluzone,6MO+Flulaval,18YR+ AFLURIA) H1N1 Injectable Vaccine 01/18/2009 Influenza Trivalent w/preserv 12/05/2012, 11/02/2011, 11/10/2010, 12/16/2009, 12/02/2008, 12/12/2007, 12/11/2007, 12/24/2005, 12/11/2004, 12/27/2003, 12/23/2002, 12/13/1998 Influenza Vaccine 12/05/2012, 11/02/2011, 11/10/2010, 12/16/2009, 12/02/2008, 12/11/2007, 12/24/2005, 12/11/2004, 12/27/2003, 12/23/2002, 12/13/1998 Pneumococcal Conj PCV13 02/16/2015 Pneumococcal Polysaccharide PPSV23 12/24/2011, 11/02/2009, 12/27/2003, 12/13/1998 TDAP 07/15/2010 Td(adult)preservative free 11/02/2009, 12/27/1999, 06/21/1998 Zoster Live(Zostavax) 02/16/2015 as of this encounter Social History Tobacco Use Types Packs/Day Years Used Date Former Smoker Cigarettes, Cigars 1 40 Quit: 03/19/2006 Smokeless Tobacco: Never Used Comments: 20 cigars a week---Quit approx Oct 26 2012 Alcohol Use Drinks/Week oz/Week Comments No Sex Assigned at Date Recorded Not on file as of this encounter Last Filed Vital Signs Vital Sign Reading Time Taken Blood Pressure 120/71 06/20/2017 8:19 AM CDT Pulse 92 06/20/2017 8:19 AM CDT Temperature 36.8 C (98.2 F) 06/20/2017 8:19 AM CDT Respiratory Rate 22 06/20/2017 8:19 AM CDT Oxygen Saturation 95% 06/20/2017 8:19 AM CDT Inhaled Oxygen Concentration - - Weight 80.3 kg (177 lb) 06/12/2017 2:44 PM CDT Height 172.7 cm (5' 8") 06/12/2017 2:44 PM CDT Body Mass Index 26.91 06/12/2017 2:44 PM CDT in this encounter Functional Status Functional Status Response Date of Assessment Is the person deaf or does he/she have serious difficulty Yes 06/13/2017 hearing? Is this person blind or does he/she have difficulty No 06/13/2017 seeing even when wearing glasses? Do you have difficulty with walking, balance, climbing Yes 06/13/2017 stairs, or had a fall in the last 3 months? Does the patient have difficulty dressing or bathing? Yes 06/13/2017 Because of a physical, mental, or emotional condition; Yes 06/13/2017 does this person have difficulty doing errands alone such as visiting a doctor's office or shopping? Cognitive Status Response Date of Assessment Because of a physical, mental, or emotional condition; Yes 06/13/2017 does this person have serious difficulty concentrating, remembering, or making decisions? as of this encounter Progress Notes Natali Hanna, [employer] - 06/19/2017 10:30 AM CDTFormatting of this note may be different from the original. DAILY PROGRESS NOTE Daryl Olvera is a 66yr old male admitted on 06/12/2017 2:37 PM. Impression / Plan Acute tachypnea- related to chronic obstructive pulmonary disease exacerbation. Treated with Neb and symptomatically improved CXR- Spiculated nodule within the right upper lobe. Suspicious for malignancy, Underlying emphysema and lung hyperinflation, Clear lungs- no new infiltrates- will need FU with IR for biopsy after completing IV antibiotics Continue Atrovent and formoterol nebulization Continue Prednisone PO Chest pain with episode SVT - Occurred 2200- duration 1/2 hour, converted to SR with routine PO Cardizem- symptoms have resolved EKG- demonstrated SVT rate 188, Troponin negative x2, CXR no acute changes Continue to monitor per telemetry sinus rhythm- with PACs today Continue Cardizem Pseudomonas bronchitis. No infiltrate on CXR, pseudomonas positive sputum culture Infectious disease consulted -Continue IV Cefipime q8 hours , PICC line placed Orders placed per ID Will need TCU for continued antibiotic tx unitl completed prior to returning to care home Upper GI bleed secondary to grade C esophagitis. EGD shows grade C esophagitis Continue oral omeprazole. Plan todischarge on omeprazole. Hemoglobin 9.4- no acute bleeding noted- will obtain occult stool Repeat CBC in am Significant leukocytosis. WBC elevated 24.3 but trending down- (34.1 yesterday) On IV Cefepime If not continuing to trend down will need to follow up with the PCP for referral to hematology. Right upper lobe mass, highly suspicious for malignancy. Given his COPD exacerbation and Pseudomonas, we will do a CT-guided biopsy as an outpatient once patient completes his antibiotic course. Bilateral adrenal masses. The size is more than 4 cm, raising suspicion for metastatic disease. 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 Will need FU onceinfection has resolved Atrial flutter episode, resolved.Likely secondary to stress and nebulizations. Chronic systolic congestive heart failure.stable. Continue with the Cardizem. History of developmental delay. Lives in a care home. History of schizophrenia, on Zyprexa. History of depression, on Zoloft. History of benign prostatic hypertrophy, on Flomax and Proscar. DVT prophylaxiswith SCDs And Lovenox Sc Chronic hypoxic respiratory failure. Continue oxygen, will needhome oxygen eval. Plan: anticipate discharge in am to for continued IV antibiotic therapy prior to returning to care home Interval History Patient is a 66yr male presenting with breathing problem. Breathing Problem Associated symptoms include wheezing. Pertinent negatives include no chest pain and no abdominal pain. anticipating transfer to [facility] today- patient was dressed ready for discharge, reports feeling very SOB, appears dyspneic, respiratory rate 38 with expiratory wheezing and crackles- dsg for today canceled Review of Systems Review of Systems Constitutional: Negative. HENT: Negative. Eyes: Negative. Respiratory: Positive for shortness of breath and wheezing. Cardiovascular: Negative. Negative for chest pain. Gastrointestinal: Negative for abdominal pain and nausea. Endocrine: Negative. Genitourinary: Negative. Musculoskeletal: Negative. Skin: Negative. Neurological: Negative. Hematological: Negative. Psychiatric/Behavioral: Negative. Physical Exam Vital Signs: Temp: 97.8 | BP: 123/49 | Pulse: 96 | Resp: 38 | Pain Ratin ( out of 10) | Weight: 80.3 kg (177 lb) | O2 Device: NC - no humidity O2 Flow Rate (L/min): 5 l/min | SpO2: 96 % Maximum Temperatures (last 24 hours) Temperature Maximum Max Temp 98.2 F (36.8 C) Intake and Output: 06/18 0700 - 06/19 0659 In: - Out: 1075 [Urine:1075] Physical Exam Constitutional: He is oriented to person, place, and time. He appears distressed. HENT: Head: Normocephalic and atraumatic. Eyes: Conjunctivae and EOM are normal. Pupils are equal, round, and reactive to light. Neck: Normal range of motion. Neck supple. Cardiovascular: Normal rate, regular rhythm and normal heart sounds. Pulmonary/Chest: Accessory muscle usage present. Tachypnea noted. He has wheezes. He has rales. Musculoskeletal: Normal range of motion. Neurological: He is alert and oriented to person, place, and time. Skin: Skin is warm and dry. Psychiatric: He has a normal mood and affect. His behavior is normal. Thought content normal. Nursing note and vitals reviewed. Labs Labs (Last day) 06/19/17 0559 - 06/19/17 0150 CARDIAC MARKERS 06/19/17 0559 06/19/17 0150 CARDIAC MARKERS Troponin I 0.000-0.028 (ng/mL) 0.002 0.006 06/19/17 0559 - 06/19/17 0559 CBC 06/19/17 0559 CBC WBC 4.0-11.0 (K/uL) 28.1 RBC 4.40-5.80 (M/uL) 3.51 Hemoglobin 13.5-17.5 (g/dL) 9.1 Hematocrit 40.0-50.0 (%) 28.7 MCV 80.0-98.0 (fL) 81.8 MCH 25.5-34.0 (pg) 25.9 MCHC 31.5-36.5 (g/dL) 31.7 RDW-CV 11.5-15.5 (%) 16.0 RDW-SD 35.5-50.0 (fl) 47.7 Platelet Count 140-400 (K/uL) 375 MPV 8.5-12.0 (fL) 9.4 06/19/17 0559 - 06/19/17 0559 DIFFERENTIAL 06/19/17 0559 DIFFERENTIAL Seg Neut Absolute 1.8-8.0 (K/uL) 23.6 Band Absolute 0.0-0.7 (K/uL) 0.8 Lymphocytes Absolute 0.8-4.1 (K/uL) 2.2 Monocytes Absolute 0.0-1.0 (K/uL) 1.1 Eosinophils Absolute 0.0-0.7 (K/uL) 0.3 Neutrophils Abs. (Segs and Bands) (/uL) 99988 Neutrophils Percent (%) 84.0 Band Percent (%) 3.0 Lymphocytes Percent (%) 8.0 Monocytes Percent (%) 4.0 Eosinophils Percent (%) 1.0 Platelet Morphology Normal RBC Morphology Normal Basophilic Stippling Present Medical Decision making MDM Reviewed: previous chart, nursing note and vitals Reviewed previous: x-ray and labs Natali Hanna, [employer] - 06/18/2017 11:00 AM CDTFormatting of this note may be different from the original. DAILY PROGRESS NOTE Daryl Olvera is a 66yr old male admitted on 06/12/2017 2:37 PM. Impression / Plan Chest pain with episode SVT - Occurred 2200- duration 1/2 hour, converted to SR with routine PO Cardizem- symptoms have resolved EKG- demonstrated SVT rate 188, Troponin negative x2, CXR no acute changes Continue to monitor per telemetry sinus rhythm- with PACs today Continue Cardizem chronic obstructive pulmonary disease exacerbation. improving Continue Atrovent and formoterol nebulizations Pseudomonas bronchitis. No infiltrate on CXR, pseudomonas positive sputum culture Infectious disease consulted -Continue IV Cefipime q8 hours , PICC line placed Orders placed per ID Will need TCU for continued antibiotic tx unitl completed prior to returning to care home Upper GI bleed secondary to grade C esophagitis. EGD shows grade C esophagitis Continue oral omeprazole. Plan todischarge on omeprazole. Hemoglobin 9.4- no acute bleeding noted- will obtain occult stool Repeat CBC in am Significant leukocytosis. WBC elevated 24.3 but trending down- (34.1 yesterday) On IV Cefepime If not continuing to trend down will need to follow up with the PCP for referral to hematology. Right upper lobe mass, highly suspicious for malignancy. Given his COPD exacerbation and Pseudomonas, we will do a CT-guided biopsy as an outpatient once patient completes his antibiotic course. Bilateral adrenal masses. The size is more than 4 cm, raising suspicion for metastatic disease. 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 Will need FU onceinfection has resolved Atrial flutter episode, resolved. Likely secondary to stress and nebulizations. Chronic systolic congestive heart failure.stable. Continue with the Cardizem. History of developmental delay. Lives in a care home. History of schizophrenia, on Zyprexa. History of depression, on Zoloft. History of benign prostatic hypertrophy, on Flomax and Proscar. DVT prophylaxis with SCDs And Lovenox Sc Chronic hypoxic respiratory failure. Continue oxygen, will need home oxygen eval. Plan: will need TCU for continued IV antibiotic therapy prior to returning to care home Interval History Patient is a 66yr male presenting with breathing problem. Breathing Problem Associated symptoms include wheezing. Pertinent negatives include no abdominal pain. resting comfortably, denies SOB or CP at this time, denies GI upset, no obvious bleeding Overnight events- he had an episode of chest pain around 2200 last evening- EKG at that time was SVT rate 188, was given his routine Cardizem dosage, tachyarrythmia lasted approx 1/2 hour then converted to sinus rhythm, no further arrhythmia noted per telemetry today- troponin normal x2 Review of Systems Review of Systems Constitutional: Negative. HENT: Negative. Eyes: Negative. Respiratory: Positive for shortness of breath and wheezing. Cardiovascular: Negative. Gastrointestinal: Negative for abdominal pain and nausea. Endocrine: Negative. Genitourinary: Negative. Musculoskeletal: Negative. Skin: Negative. Neurological: Negative. Hematological: Negative. Psychiatric/Behavioral: Negative. Physical Exam Vital Signs: Temp: 98.6 F (37 C) | BP: 107/58 | Pulse: 85 | Resp: 24 | Pain Ratin (out of 10) | Weight: 80.3 kg (177 lb) | O2 Device: NC - no humidity O2 Flow Rate (L/min): 2 l/min | SpO2: 97 % Maximum Temperatures (last 24 hours) Temperature Maximum Max Temp 98.6 F (37 C) Intake and Output: 06/17 0700 - 06/18 0659 In: 490 [Oral:480] Out: 1900 [Urine:1900] Physical Exam Constitutional: He is oriented to person, place, and time. No distress. HENT: Head: Normocephalic and atraumatic. Eyes: Conjunctivae and EOM are normal. Pupils are equal, round, and reactive to light. Neck: Normal range of motion. Neck supple. Cardiovascular: Normal rate, regular rhythm and normal heart sounds. No murmur heard. Pulmonary/Chest: Effort normal. No respiratory distress. Abdominal: Soft. Bowel sounds are normal. There is no tenderness. Musculoskeletal: Normal range of motion. He exhibits no edema. Neurological: He is alert and oriented to person, place, and time. No cranial nerve deficit. Skin: Skin is warm and dry. Psychiatric: He has a normal mood and affect. His behavior is normal. Thought content normal. Nursing note and vitals reviewed. Labs Labs (Last day) 06/18/17 1035 - 06/17/17 2148 CARDIAC MARKERS 06/18/17 1035 06/18/17 0655 06/17/17 2148 CARDIAC MARKERS Troponin I 0.000-0.028 (ng/mL) 0.013 0.016 0.011 06/18/17 1035 - 06/17/17 2148 CBC 06/18/17 1035 06/17/17 2148 CBC WBC 4.0-11.0 (K/uL) 24.3 34.1 RBC 4.40-5.80 (M/uL) 3.56 4.13 Hemoglobin 13.5-17.5 (g/dL) 9.4 10.5 Hematocrit 40.0-50.0 (%) 29.1 34.4 MCV 80.0-98.0 (fL) 81.7 83.3 MCH 25.5-34.0 (pg) 26.4 25.4 MCHC 31.5-36.5 (g/dL) 32.3 30.5 RDW-CV 11.5-15.5 (%) 15.9 15.7 RDW-SD 35.5-50.0 (fl) 47.5 47.8 Platelet Count 140-400 (K/uL) 384 487 MPV 8.5-12.0 (fL) 9.4 9.8 06/18/171034 - 06/17/172147 CHEMISTRY 06/18/17103406/17/17225106/17/17214706/17/172147 CHEMISTRY Glucose 70-100 (mg/dL) 169 202 Sodium 135-145 (meq/L) 134 137 Potassium 3.5-5.3 (meq/L) 3.7 4.2 Chloride 99-110 (meq/L) 99 101 CO2 20-29 (meq/L) 29 29 Anion Gap with K 6-20 (meq/L) 10 11 BUN 6-22 (mg/dL) 16 18 Creatinine 0.80-1.30 (mg/dL) 0.57 0.62 BUN/Creatinine Ratio 10.0-25.0 28.1 29.0 Calcium 8.5-10.5 (mg/dL) 8.7 9.3 Corrected Calcium 8.5-10.5 (mg/dL) 9.8 10.1 Magnesium 1.8-2.4 (mg/dL) 2.2 Bilirubin Total 0.2-1.2 (mg/dL) 0.3 0.2 Alkaline Phosphatase 30-150 (U/L) 124 166 ALT - SGPT 0-55 (U/L) 127 178 AST - SGOT 0-35 (U/L) 53 78 Protein Total 6.0-8.2 (g/dL) 5.4 6.2 Albumin 3.5-5.0 (g/dL) 2.6 3.0 Lipase 5-80 (U/L) 26 eGFR >=60 (mL/min/1.73m2) >90 >90 eGFR Non- >=60 (mL/min/1.73m2) >90 >90 06/18/171034 - 06/17/172147 DIFFERENTIAL 06/18/17103406/17/172147 DIFFERENTIAL Seg Neut Absolute 1.8-8.0 (K/uL) 20.7 27.3 Band Absolute 0.0-0.7 (K/uL) 1.0 0.7 Lymphocytes Absolute 0.8-4.1 (K/uL) 1.0 3.4 Monocytes Absolute 0.0-1.0 (K/uL) 1.2 1.0 Eosinophils Absolute 0.0-0.7 (K/uL) 0.2 Metamyelocyte Absolute 0.0-0.1 (K/uL) 0.2 0.3 Myelocyte Absolute 0.0-0.0 (K/uL) 1.0 Promyelocyte Absolute 0.0-0.0 (K/uL) 0.3 Neutrophils Abs. (Segs and Bands) (/uL) [id number] Neutrophils Percent (%) 85.0 80.0 Band Percent (%) 4.0 2.0 Lymphocytes Percent (%) 4.0 10.0 Monocytes Percent (%) 5.0 3.0 Eosinophils Percent (%) 1.0 Metamyelocytes Percent (%) 1.0 1.0 Myelocyte Percent (%) 3.0 Promyelocyte Percent (%) 1.0 Platelet Estimate Increased Platelet Morphology Normal Normal RBC Morphology Normal Basophilic Stippling Present Vacuolated Neutrophils (none) Present 06/17/172201 - 06/17/172201 ECG/EKG 06/17/172201 ECG/EKG EKG WAVEFORM Supraventricular tachycardia with Premature ventricular complexes or Fusion complexes: Low voltage QRS, consider pulmonary disease, pericardial effusion, or normal variant: Right bundle branch block: Twave abnormality, consider inferolateral ischemia: Abnormal ECG: Rate faster Ventricular Rate: 188 BPM Atrial Rate: 197 BPM QRS Duration: 110 ms Q-T Interval: 228 ms QTC Calculation(Bazett): 403 ms Calculated R Woodruff: 106 degrees Calculated T Woodruff: -108 degrees 06/18/17 1035 - 06/17/17 2148 OTHER 06/18/17 1035 06/17/17 2148 OTHER [age]Years) [age] Medical Decision making MDM Reviewed: previous chart, nursing note and vitals Reviewed previous: labs and ECG Natali Hanna APRN-[employer]LL SHEETING [employer]UTTER - 06/17/2017 10:40 AM CDTFormatting of this note may be different from the original. DAILY PROGRESS NOTE Daryl Olvera is a 66yr old male admitted on 06/12/2017 2:37 PM. Impression / Plan chronic obstructive pulmonary disease exacerbation. improving Continue Atrovent and formoterol nebulizations Pseudomonas bronchitis. No infiltrate on CXR, pseudomonas positive sputum culture Infectious disease consult- Continue IV Cefipime Upper GI bleed secondary to grade C esophagitis. EGD shows grade C esophagitis Continue oral omeprazole. Plan todischarge on omeprazole. Hemoglobin Stable. Significant leukocytosis. The patient's white count is significantly elevated, could be from the steroids, but the white count was elevated even at the time of admission. will need to follow up with the PCP for referral to hematology. Right upper lobe mass, highly suspicious for malignancy. Given his COPD exacerbation and Pseudomonas, we will do a CT-guided biopsy as an outpatient once patient completes his antibiotic course. Bilateral adrenal masses. The size is more than 4 cm, raising suspicion for metastatic disease. 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 Will need FU onceinfection has resolved Atrial flutter episode, resolved. Likely secondary to stress and nebulizations. Chronic systolic congestive heart failure.stable. Continue with the Cardizem. History of developmental delay. Lives in a care home. History of schizophrenia, on Zyprexa. History of depression, on Zoloft. History of benign prostatic hypertrophy, on Flomax and Proscar. DVT prophylaxis with SCDs And Lovenox Sc Chronic hypoxic respiratory failure. Continue oxygen, will need home oxygen eval. Plan: continue IV Cefipime, consulted ID, Will need FU outpatient for biopsy of lung and adrenal masses Interval History Patient is a 66yr male presenting with breathing problem. Breathing Problem Associated symptoms include wheezing. Pertinent negatives include no abdominal pain. no overnight events- co wheezing intermittent today, O2 Sat 91% on RA, continued on O2 1-2 l/min, Appetite good, no further emesis or GI upset Review of Systems Review of Systems Constitutional: Negative. HENT: Negative. Eyes: Negative. Respiratory: Positive for shortness of breath and wheezing. Cardiovascular: Negative. Gastrointestinal: Negative for abdominal pain and nausea. Endocrine: Negative. Genitourinary: Negative. Musculoskeletal: Negative. Skin: Negative. Neurological: Negative. Hematological: Negative. Psychiatric/Behavioral: Negative. Physical Exam Vital Signs: Temp: 98.3 F (36.8 C) | BP: 145/66 | Pulse: 104 | Resp: 18 | Pain Ratin (out of10) | Weight: 80.3 kg (177 lb) | O2 Device: NC - no humidity O2 Flow Rate (L/min): 1 l/min | SpO2: 93 % Maximum Temperatures (last 24 hours) Temperature Maximum Max Temp 98.3 F (36.8 C) Intake and Output: 06/16 0700 - 06/17 0659 In: 200 [Oral:200] Out: 4185 [Urine:4185] Physical Exam Constitutional: He is oriented to person, place, and time. No distress. HENT: Head: Normocephalic and atraumatic. Eyes: Conjunctivae and EOM are normal. Pupils are equal, round, and reactive to light. Neck: Normal range of motion. Neck supple. Cardiovascular: Normal rate, regular rhythm and normal heart sounds. No murmur heard. Pulmonary/Chest: Effort normal. He has wheezes. He has rales. Crackles clear with deep coughing Abdominal: Soft. Bowel sounds are normal. There is no tenderness. Musculoskeletal: Normal range of motion. He exhibits no edema. Neurological: He is alert and oriented to person, place, and time. No cranial nerve deficit. Skin: Skin is warm and dry. Psychiatric: He has a normal mood and affect. His behavior is normal. Thought content normal. Labs Labs (Last day) 06/17/17523 - 06/17/17523 CBC 06/17/17523 CBC WBC 4.0-11.0 (K/uL) 27.7 RBC 4.40-5.80 (M/uL) 4.11 Hemoglobin 13.5-17.5 (g/dL) 10.7 Hematocrit 40.0-50.0 (%) 34.4 MCV 80.0-98.0 (fL) 83.7 MCH 25.5-34.0 (pg) 26.0 MCHC 31.5-36.5 (g/dL) 31.1 RDW-CV 11.5-15.5 (%) 15.5 RDW-SD 35.5-50.0 (fl) 47.2 Platelet Count 140-400 (K/uL) 454 MPV 8.5-12.0 (fL) 9.7 06/17/17523 - 06/17/17523 DIFFERENTIAL 06/17/17523 DIFFERENTIAL Seg Neut Absolute 1.8-8.0 (K/uL) 20.8 Band Absolute 0.0-0.7 (K/uL) 1.7 Lymphocytes Absolute 0.8-4.1 (K/uL) 1.9 Monocytes Absolute 0.0-1.0 (K/uL) 1.9 Eosinophils Absolute 0.0-0.7 (K/uL) 0.3 Myelocyte Absolute 0.0-0.0 (K/uL) 1.1 Neutrophils Abs. (Segs and Bands) (/uL) 51966 Neutrophils Percent (%) 75.0 Band Percent (%) 6.0 Lymphocytes Percent (%) 7.0 Monocytes Percent (%) 7.0 Eosinophils Percent (%) 1.0 Myelocyte Percent (%) 4.0 Platelet Morphology Normal Polychromasia 1+ Medical Decision making MDM Reviewed: previous chart, nursing note and vitals Reviewed previous: labs Max Cardona MD - 06/16/2017 8:47 PM CDTInpatient Progress Note PROVIDER: Max Cardona M.D., Internal Medicine LOCATION OF CARE: DATE OF SERVICE: 06/16/2017 PATIENT NAME: DARYL OLVERA MR#: [id number] CSN: [id number] : 1950 SEX: M HOME: WORK: Mr. Daryl Olvera is a 66-year-old male admitted on June 12, 2017, with shortness of breath and cough, diagnosed to have chronic obstructive pulmonary disease exacerbation. IMPRESSION/PLAN: 1. Bronchitis/chronic obstructive pulmonary disease exacerbation. The patient is improving well. He is currently on Atrovent and formoterol nebulizations along with steroids. 2. Pseudomonas bronchitis. The chest x-ray does not show any evidence of infiltrate, but given his significant sputum production and elevated CRP, we will treat as an infection rather than colonization. We will continue with IV cefepime, pt is allergic to floroquinolones so no good oral antibiotic choice, will get ID consult tomorrow. 3. Upper GI bleed secondary to grade C esophagitis. The EGD shows grade C esophagitis, currently on oral omeprazole. We will discharge him on omeprazole. Hemoglobin has remained stable. 4. Significant leukocytosis. The patient's white count is significantly elevated , could be from the steroids, but the white count was elevated even at the time of admission. Peripheral smear does not qualify for review. If the patient's white count remains elevated, we will need to follow up with the PCP for referral to hematology. 5. Right upper lobe mass, highly suspicious for malignancy. Given his COPD exacerbation and Pseudomonas, we will do a CT-guided biopsy as an outpatient once patient completes his antibiotic course. I explained to the pt & sister. 6. Bilateral adrenal masses. The size is more than 4 cm, raising suspicion for metastatic disease. 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 7. Atrial flutter episode, resolved. Likely secondary to stress and nebulizations. 8. Chronic systolic congestive heart failure. Looking stable. Continue with the Cardizem. 9. History of developmental delay. Lives in a care home. 10. History of schizophrenia, on Zyprexa. 11. History of depression, on Zoloft. 12. History of benign prostatic hypertrophy, on Flomax and Proscar. 13. DVT and GI prophylaxis with SCDs and omeprazole. 14. Chronic hypoxic respiratory failure. Currently getting 1 liter, will get home oxygen eval. SUBJECTIVE: The patient is feeling better. Explained to pt about adrenal masses & possibility ofmalignancy. The shortness of breath is improving, and the cough and sputum production is much better. Otherwise, no other acute events happened overnight. REVIEW OF SYSTEMS: GENERAL: Generalized weakness. No fevers or chills. RESPIRATORY: As above. CARDIOVASCULAR: No chest pain. GASTROINTESTINAL: No nausea or vomiting. EXTREMITIES: No weakness or numbness. VITAL SIGNS: Reviewed. MEDICATIONS: Reviewed and adjusted. LABS AND IMAGING STUDIES: Reviewed. PHYSICAL EXAMINATION: GENERAL: The middle-aged male is seen lying comfortably in the bed, not in any obvious distress. CARDIOVASCULAR: S1, S2 heard. No murmurs or gallops. LUNGS: Air entry is present on both sides. No wheezing or creps. ABDOMEN: Soft, flat, nontender. No organomegaly. CENTRAL NERVOUS SYSTEM: Awake, alert, and oriented to time, place, and person. No focal deficits. EXTREMITIES: No pedal edema. Pulses are palpable. DERMATOLOGICAL: Warm and moist skin noted. Max Cardona M.D., Internal Medicine Max Cardona MD - 06/15/2017 12:00 AM CDTInpatient Progress Note PROVIDER: Max Cardona M.D., Internal Medicine LOCATION OF CARE: DATE OF SERVICE: 06/15/2017 PATIENT NAME: DARYL OLVERA MR#: [id number] CSN: [id number] : 1950 SEX: M HOME: WORK: Mr. Daryl Olvera is a 66-year-old male admitted on June 12, 2017, with shortness of breath and cough, diagnosed to have chronic obstructive pulmonary disease exacerbation. IMPRESSION/PLAN: 1. Bronchitis/chronic obstructive pulmonary disease exacerbation. The patient is improving well. He is currently on Atrovent and formoterol nebulizations along with steroids. We will stop the IV Solu-Medrol and change it to oral prednisone. 2. Pseudomonas bronchitis. The chest x-ray does not show any evidence of infiltrate, but given his significant sputum production and elevated CRP, we will treat as an infection rather than colonization. We will continue with IV cefepime for today, and we will discharge him on oral fluoroquinolones. 3. Upper GI bleed secondary to grade C esophagitis. The EGD shows grade C esophagitis, currently on oral omeprazole. We will discharge him on omeprazole. Hemoglobin has remained stable. 4. Significant leukocytosis. The patient's white count is significantly elevated , could be from the steroids, but the white count was elevated even at the time of admission. We will get a peripheral smear to look for any blasts or any abnormal cells. If the patient's white count remains elevated, we will need to follow up with the PCP for referral to hematology. 5. Right upper lobe mass, highly suspicious for malignancy. Given his COPD exacerbation and Pseudomonas, we will do a CT-guided biopsy as an outpatient once patient completes his antibiotic course. I explained to the sister. 6. Bilateral adrenal masses. The size is more than 4 cm, raising suspicion for metastatic disease. 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 7. Atrial flutter episode, resolved. Likely secondary to stress and nebulizations. 8. Chronic systolic congestive heart failure. Looking stable. Continue with the Cardizem. 9. History of developmental delay. Lives in a care home. 10. History of schizophrenia, on Zyprexa. 11. History of depression, on Zoloft. 12. History of benign prostatic hypertrophy, on Flomax and Proscar. 13. DVT and GI prophylaxis with SCDs and omeprazole. SUBJECTIVE: The patient is feeling better. The shortness of breath is improving , and the cough and sputum production is much better. Otherwise, no other acute events happened overnight. REVIEW OF SYSTEMS: GENERAL: Generalized weakness. No fevers or chills. RESPIRATORY: As above. CARDIOVASCULAR: No chest pain. GASTROINTESTINAL: No nausea or vomiting. EXTREMITIES: No weakness or numbness. VITAL SIGNS: Reviewed. MEDICATIONS: Reviewed and adjusted. LABS AND IMAGING STUDIES: Reviewed. PHYSICAL EXAMINATION: GENERAL: The middle-aged male is seen lying comfortably in the bed, not in any obvious distress. CARDIOVASCULAR: S1, S2 heard. No murmurs or gallops. LUNGS: Air entry is present on both sides. No wheezing or creps. ABDOMEN: Soft, flat, nontender. No organomegaly. CENTRAL NERVOUS SYSTEM: Awake, alert, and oriented to time, place, and person. No focal deficits. EXTREMITIES: No pedal edema. Pulses are palpable. DERMATOLOGICAL: Warm and moist skin noted. Max Cardona M.D., Internal Medicine Job ID/Trans ID: [id number] Doc ID: [id number] ROLL[employer] COASTER ENGINEER RO[employer] COASTER ENGINEER Neha Astudillo MD - 06/14/2017 11:47 AM CDTFormatting of this note may be different from the original. DAILY PROGRESS NOTE Daryl Olvera is a 66yr old male admitted on 06/12/2017 2:37 PM. Impression / Plan COPD exacerbation. Pseudomonas pneumonia vs colonization Leukocytosis 2/2 to infection vs streoids Repeat CXR today did not show any consolidation. But presented with worsening SOB and green sputum, has leukocytosis bandemia, elevated CRP, Continue Cefepime, IV solumedrol, nebulizers Atrovent and Xopenex nebulizations every 4 hours, RT per protocol. Awaiting sensitivities and blood cultures CBC with diff tomorrow. Will consider imaging of the abdomen if he has worsening WBCs Upper GI bleed Acute on chronic blood loss anemia likely 2/2 above Coffee ground emesis Dropping Hb Will consult GI for EGD NPO except meds Stool guaiac pending Atrial tachycardia likely 2/2 to acute illness, steroids-resolved. Continue Cardizem, will discontinue once he is more stable Large right upper lobe nodule CT, CXR showed large upper lobe nodule 2.2 cm, will need biopsy but given his COPD exacerbation, Pseudomonas will hold off for now. Will need close out pt follow up & biopsy in next 1-2 weeks. Chronic medical conditions Chronic systolic CHF. The echocardiogram shows EF of 50%, otherwise, not in any exacerbation. We will continue to monitor. History of developmental delay. The patient lives in a care home. History of schizophrenia, looking stable. Continue with the Zyprexa. History of major depression, on Zoloft. History of BPH. Continue with the Flomax and Proscar. DVT and GI prophylaxis with Lovenox and ranitidine. Full code Interval History HPI Overnight pt had an episode of hematemesis, describes it as dark brown in color. Normal colored BMs.Vitals stable. Is currently on 2L O2. Tele showed NSR Review of Systems Review of Systems Constitutional: Negative. HENT: Negative. Eyes: Negative. Respiratory: Positive for cough and shortness of breath. Cardiovascular: Negative. Gastrointestinal: Hematemesis Genitourinary: Negative. Musculoskeletal: Negative. Skin: Negative. Neurological: Negative. Physical Exam Vital Signs: Temp: 98 F (36.7 C) | BP: 146/71 | Pulse: 64 | Resp: 22 | Pain Ratin (out of 10) | Weight: 80.3 kg (177 lb) | O2 Device: NC - no humidity O2 Flow Rate (L/min): 2 l/min | SpO2: 95 % Maximum Temperatures (last 24 hours) Temperature Maximum Max Temp 98.4 F (36.9 C) Intake and Output: 06/13 0700 - 06/14 0659 In: 2320 [Oral:1790] Out: 2010 [Urine:2009; Emesis:1] Physical Exam Constitutional: He is oriented to person, place, and time. He appears well- developed and well-nourished. No distress. HENT: Head: Atraumatic. Eyes: Conjunctivae are normal. Neck: Neck supple. Cardiovascular: Normal rate, regular rhythm and normal heart sounds. No murmur heard. Pulmonary/Chest: Effort normal. He has wheezes. He has no rales. Abdominal: Bowel sounds are normal. He exhibits no distension. There is no tenderness. There is no rebound. Musculoskeletal: Normal range of motion. He exhibits no edema. Neurological: He is alert and oriented to person, place, and time. No cranial nerve deficit. Skin: Skin is warm. Psychiatric: He has a normal mood and affect. Labs Labs (Last day) 06/14/1716 - 06/14/1716 BLOOD BANK 06/14/1716 BLOOD BANK ABO Type B Rh Type Positive Antibody Screen Negative Expiration Date 06/17/2017 23:59 06/14/17453 - 06/14/17453 CARDIAC MARKERS 06/14/17453 CARDIAC MARKERS BNP 0-100 (pg/mL) 271 06/14/17453 - 06/14/1716 CBC 06/14/1745306/14/1716 CBC WBC 4.0-11.0 (K/uL) 24.2 RBC 4.40-5.80 (M/uL) 3.27 Hemoglobin 13.5-17.5 (g/dL) 8.5 8.8 Hematocrit 40.0-50.0 (%) 27.3 MCV 80.0-98.0 (fL) 83.5 MCH 25.5-34.0 (pg) 26.0 MCHC 31.5-36.5 (g/dL) 31.1 RDW-CV 11.5-15.5 (%) 15.3 RDW-SD 35.5-50.0 (fl) 47.5 Platelet Count 140-400 (K/uL) 342 MPV 8.5-12.0 (fL) 10.1 06/14/17 0902 - 06/14/17453 CHEMISTRY 06/14/17 0902 06/14/174 06/14/174 06/14/1745306/14/17453 CHEMISTRY Glucose 70-100 (mg/dL) 119 Sodium 135-145 (meq/L) 137 Potassium 3.5-5.3 (meq/L) 4.0 Chloride 99-110 (meq/L) 99 CO2 20-29 (meq/L) 31 Anion Gap with K 6-20 (meq/L) 11 BUN 6-22 (mg/dL) 16 Creatinine 0.80-1.30 (mg/dL) 0.56 BUN/Creatinine Ratio 10.0-25.0 28.6 Calcium 8.5-10.5 (mg/dL) 9.0 Corrected Calcium 8.5-10.5 (mg/dL) 10.0 Phosphorus 2.5-4.5 (mg/dL) 3.2 Magnesium 1.8-2.4 (mg/dL) 1.9 Albumin 3.5-5.0 (g/dL) 2.7 Ferritin 21-275 (ng/mL) 769 Folate Serum 2.8-16.0 (ng/mL) 10.1 Lactic Acid 0.5-2.2 (mmol/L) 0.7 eGFR >=60 (mL/min/1.73m2) >90 eGFR Non- >=60 (mL/min/1.73m2) >90 06/14/17453 - 06/14/17453 CHEMISTRY 06/14/17453 CHEMISTRY Iron Total 65-175 (ug/dL) 20 TIBC 250-400 (ug/dL) 199 Iron Saturation 20-50 (% Sat) 10 06/14/17453 - 06/14/17453 DIFFERENTIAL 06/14/17453 DIFFERENTIAL Seg Neut Absolute 1.8-8.0 (K/uL) 16.2 Band Absolute 0.0-0.7 (K/uL) 1.5 Lymphocytes Absolute 0.8-4.1 (K/uL) 2.7 Monocytes Absolute 0.0-1.0 (K/uL) 3.1 Metamyelocyte Absolute 0.0-0.1 (K/uL) 0.5 Myelocyte Absolute 0.0-0.0 (K/uL) 0.2 Neutrophils Abs. (Segs and Bands) (/uL) 48670 Neutrophils Percent (%) 67.0 Band Percent (%) 6.0 Lymphocytes Percent (%) 11.0 Monocytes Percent (%) 13.0 Metamyelocytes Percent (%) 2.0 Myelocyte Percent (%) 1.0 Platelet Morphology Normal RBC Morphology Normal 06/14/17453 - 06/14/17453 HEMATOLOGY MISC 06/14/17453 HEMATOLOGY MISC Reticulocyte Absolute 0.02-0.11 (M/uL) 0.08 Reticulocyte Percent 0.5-1.8 (%) 2.5 Immature Retic Fraction 3.0-16.0 (%) 13.5 Retic Hemoglobin 29.0-38.0 (pg) 21.9 06/14/17 0454 - 06/14/17 0454 VITAMINS 06/14/17 0454 VITAMINS Vitamin B12 200-1000 (pg/mL) 771 06/14/17 0454 - 06/14/17 0454 OTHER 06/14/17 0454 OTHER Age (Years) 66 Medical Decision making MDM Reviewed: previous chart, nursing note and vitals Reviewed previous: labs, x-ray and CT scan Consults: gastrointestinal Associated attestation - Max Cardona MD - 06/15/2017 12:14 PM CDTI discussed the patient with the resident and personally interviewed and examined the patient. I agree with the patient's diagnosis and management. Pt had hematemesis last night, Hb is stable. Will getGI consult. Otherwise WBC is still elevated, will see the trend tomorrow. Total time spent on takingcare of pt is more than 35 minutes and more than 50% of time spent coordination of care. Max Cardona MD - 06/13/2017 12:00 AM CDTInpatient Progress Note PROVIDER: aMx Cardona M.D., Internal Medicine LOCATION OF CARE: DATE OF SERVICE: 06/13/2017 PATIENT NAME: DARYL OLVERA MR#: [id number] CSN: [id number] : 1950 SEX: M HOME: WORK: Mr. Daryl Olvera is a 66-year-old male admitted on June 12, 2017, with increasing shortnessof breath and cough productive of sputum, and diagnosed to have COPD exacerbation. IMPRESSION AND PLAN: 1. COPD exacerbation. The patient is seen improving well. No pulmonary function tests were seen donerecently. The respiratory therapy is following and adjusting the nebulization frequency. He is currently on IV Solu-Medrol. We will decrease it to every 12 hours. Otherwise, he is getting Atrovent and Xopenex nebulizations every 4 hours. We will continue with IV antibiotics and see how he improves. 2. Pseudomonas in the sputum. The patient is complaining of a significant cough productive of green-colored sputum and the sputum cultures came back positive for Pseudomonas. The chest x-ray does not show any clear infiltrate. We will repeat the chest x-ray again tomorrow since patient received IV fluids, so we will see if it shows up any infiltrate. Otherwise, given his significantly elevated white count and CRP and increase of the sputum production, we will treat it as pneumonia. We will stop the IV Rocephin and change it to IV cefepime. Once the culture sensitivity results are back, we will adjust the antibiotics. 3. Chronic bronchitis exacerbation, secondary to Pseudomonas infection. We will continue with IV antibiotics. 4. Atrial tachycardia. The patient went into heart rate of 160s. He responded well to the IV metoprolol. The patient's rate is well controlled. Continue with the telemetry. No further episodes of tachycardia are noted. 5. Chronic systolic CHF. The echocardiogram shows EF of 50%, otherwise, not in any exacerbation. We will continue to monitor. 6. Large right upper lobe nodule: CT, CXR showed large upper lobe nodule 2.2 cm , will need biopsy but given his COPD exacerbation, Pseudomonas will hold off for now. Will need close out pt follow up & biopsy in next 1-2 weeks. 7. History of developmental delay. The patient lives in a care home. 8. History of schizophrenia, looking stable. Continue with the Zyprexa. 9. History of major depression, on Zoloft. 10. History of BPH. Continue with the Flomax and Proscar. 11. DVT and GI prophylaxis with Lovenox and ranitidine. SUBJECTIVE: The patient is feeling slightly better, is still complaining of shortness of breath and a cough productive of sputum. Otherwise the sputum cultures came back positive for Pseudomonas. The heart rate remains stable. VITAL SIGNS: Reviewed. MEDICATIONS: Reviewed and adjusted. LABS AND IMAGING STUDIES: Reviewed. PHYSICAL EXAMINATION: GENERAL: Middle-aged male who is looking older than his stipulated age, is seen lying comfortable inthe bed, not in any obvious distress. CARDIOVASCULAR: S1, S2 heard. No murmurs or gallops. LUNGS: Air entry is decreased on both sides. No wheezing is appreciated. ABDOMEN: Soft, obese and nontender. No organomegaly. CENTRAL NERVOUS SYSTEM: Awake, alert. Oriented to place and self, moving all his limbs. EXTREMITIES: No pedal edema. Right-sided BKA is noted. DERMATOLOGICAL: Warm and moist skin noted. Total time spent on taking care of the patient is more than 35 minutes with more than 50% spent on coordination of the care including adjusting the antibiotics and further testing. 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 EKG showed wide c omplex tachycardia. It p robably is supraventricul ar rhythm but patient has underlying right bundle branch block. Probably 2 -1 atrial flutter. Patie nt given a dose of IV met oprolol and he spontaneou sly converted to sinus rh ythm. Will put him on lo w-dose diltiazem overnigh t. Monitor on telemetry.Saul Knight RPh - 06/12/2017 4:53 PM CDTFormatting of this note may be different from the original. 06/12/2017 16:53 - Patient was seen by pharmacy on the [facility] unit. HOME MEDICATIONS have been reconciled and updated to match the patient's home usage. Saul Knight RPh Prior to Admission Medications Prescriptions Last Dose Informant Patient Reported? Taking? AQUAPHOR (AQUAPHOR HEALING) ointment 06/12/2017 at AM MED Bottles or MED List No Yes Sig: Apply at least twice daily to affected skin Patient taking differently: Apply 1 application to affected area 2 times a day Apply to hands Multiple Vitamin (MULTI-VITAMIN DAILY) TABS 06/12/2017 at AM MED Bottles or MED List No Yes Sig: Take 1 tablet by mouth 1 time per day. OLANZapine (ZYPREXA) 15 mg tablet 06/12/2017 at AM MED Bottles or MED List No Yes Sig: Take one 15 mg tablet in am and one 15 mg tablet in pm Patient taking differently: Take 15 mg by mouth 2 times a day albuterol (PROVENTIL) (2.5 mg/3mL) 0.083% inhalation solution MED Bottles or MED List No Yes Sig: Inhale 1 nebule (2.5 mg) by nebulization 4 times a day as needed for shortness of breath or wheezing albuterol HFA (PROVENTIL,PROAIR,VENTOLIN) 108 (90 BASE) MCG/ACT inhaler MED Bottles or MED List No Yes Sig: Inhale 2 puffs orally Every 4 hours as needed for shortness of breath or wheezing Shake well before using. aspirin 81 mg chewable tablet 06/12/2017 at AM MED Bottles or MED List Yes Yes Sig: Take 81 mg by mouth 1 time per day budesonide (PULMICORT) 0.5 mg/2 mL inhalation solution 06/12/2017 at AM MED Bottles or MED List No Yes Sig: Inhale 1 nebule (0.5 mg) by nebulization 2 times a day clobetasol propionate (TEMOVATE) 0.05 % cream 06/12/2017 at AM MED Bottles or MED List No Yes Sig: USE TWICE A DAY ON EACH WEEK INDEFINATELY [AM,PM] PSORIASIS Patient taking differently: USE TWICE A DAY ON EACH WEEK INDEFINATELY AM,PM PSORIASIS (on hands and legs with spots) coal tar extract (CUTAR) 7.5 % OIL Past Week at Unknown time MED Bottles or MED List Yes Yes Sig: Apply topically Apply as directed by physician 4 times weekly to hands. diphenhydrAMINE (BENADRYL) 25 mg capsule 06/11/2017 at PM MED Bottles or MED List No Yes Sig: Take one capsule by mouth before bedtime. Patient taking differently: Take 25 mg by mouth every night at bedtime finasteride (PROSCAR) 5 MG tablet 06/12/2017 at AM MED Bottles or MED List No Yes Sig: TAKE ONE TABLET EVERY DAY [7AM] URINARY Patient taking differently: Take 5 mg by mouth 1 time a day in the morning formoterol (PERFOROMIST) 20 MCG/2ML inhalation solution 06/12/2017 at AM MED Bottles or MED List No Yes Sig: Inhale 1 nebule (20 mcg) by nebulization 2 times a day ipratropium (ATROVENT) 0.5 mg/2.5 mL inhalation solution 06/12/2017 at AM MED Bottles or MED List No Yes Sig: Inhale 1 unit-dose (0.5 mg) by nebulization 3 times a day psyllium (METAMUCIL) powder 06/12/2017 at AM MED Bottles or MED List No Yes Sig: Take 1 tablespoonful by mouth 1 time per day. raNITIdine (ZANTAC-75) 75 mg tablet 06/12/2017 at AM MED Bottles or MED List No Yes Sig: Take 1 tablet (75 mg) by mouth 2 times a day saline nasal spray (AYR,OCEAN) 0.65 % nasal spray MED Bottles or MED List No Yes Sig: [place] 1 spray into each nostril every 2 hours as needed for congestion sertraline (ZOLOFT) 100 mg tablet 06/12/2017 at AM MED Bottles or MED List No Yes Sig: TAKE 2 TABLETS (200MG) BY MOUTH ONCE DAILY IN THE MORNING [7AM] ANTIDEPRESSANT Patient taking differently: Take 200 mg by mouth 1 time a day in the morning tamsulosin (FLOMAX) 0.4 mg capsule 06/12/2017 at AM MED Bottles or MED List No Yes Sig: TAKE ONE CAPSULE EVERY DAY [7AM] URINARY Patient taking differently: Take 0.4 mg by mouth 1 time a day in the morning Facility-Administered Medications: None in this encounter Plan of Treatment Date Type Specialty Care Team Description 06/28/2017 Office Visit Family Practice Juvencio Terrell MD [address] [place] [address] [phone] 08/07/2017 Office Visit Infectious Diseases Andreea Potter MD [address] [place] [address] [phone] 08/14/2017 Office Visit Urology Aiden Alcocer MD [address] [place] [address] [phone] Name Priority Associated Diagnoses Date/Time CULTURE, BLOOD GIO 06/17/2017 10:52 PM CDT CULTURE, BLOOD GIO 06/17/2017 10:57 PM CDT OCCULT BLOOD DIAGNOSTIC, Routine 06/20/2017 9:42 AM CDT SPECIMEN 1 Name Priority Associated Diagnoses Order Schedule OCCULT BLOOD, GASTRIC FLUID POCT Routine Once for 1 Occurrences starting 06/12/2017 until 06/12/2017 ESOPHAGOGASTRODUODENOSCOPY Routine Once for 1 Occurrences starting 06/14/2017 until 06/14/2017 OCCULT BLOOD DIAGNOSTIC, SPECIMEN 1 Routine Once for 1 Occurrences starting 06/18/2017 until 06/18/2017 OCCULT BLOOD DIAGNOSTIC, SPECIMEN 2 Routine Once for 1 Occurrences starting 06/18/2017 until 06/18/2017 Health Maintenance Due Date Last Done Comments Annual Lung Screen 07/25/2003 Zoster Vaccine (2 of 3 - 07/12/2017 02/16/2015 Postponed from Mixed Series (ZVL first) - 04/13/2015 (Insurance / RZV,Shingrix) Financial) Pneumococcal 65yr+ Low/Med 09/22/2017 02/16/2015, 12/24/2011, Postponed from Risk (2 of 2 - PPSV23) 11/02/2009, Additional 12/23/2016 (Patient history exists Refused) Colonoscopy 02/10/2018 02/10/2013 (Previously completed), 12/04/2007 (Previously completed) Diabetes Screening 06/18/2020 06/18/2017, 06/17/2017, 06/15/2017, Additional history exists Tetanus Vaccine 07/15/2020 07/15/2010, 11/02/2009, 12/27/1999, Additional history exists Lipid Screening 01/25/2022 01/25/2017, 08/03/2015, 04/27/2014 Hepatitis C Screening Completed 05/14/2013 Influenza Vaccine Completed 12/14/2016, 12/19/2015, 12/09/2015, Additional history exists Abdominal Aortic Aneurysm Completed 06/15/2017 Screening as of this encounter Procedures Procedure Name Priority Date/Time Associated Comments Diagnosis LAB ONLY-MANUAL DIFFERENTIAL Routine 06/19/2017 Results for 5:59 AM CDT this procedure are in the results section. LAB ONLY-COMPLETE BLOOD COUNT Routine 06/19/2017 Results for WITH DIFFERENTIAL 5:59 AM CDT this procedure are in the results section. TROPONIN I Timed Routine 06/19/2017 Results for 5:59 AM CDT this procedure are in the results section. COMPLETE BLOOD COUNT WITH Routine 06/19/2017 Results for DIFFERENTIAL 5:59 AM CDT this procedure are in the results section. TROPONIN I Timed Routine 06/19/2017 Results for 1:50 AM CDT this procedure are in the results section. TROPONIN I Timed Routine 06/18/2017 Results for 4:23 PM CDT this procedure are in the results section. LAB ONLY-MANUAL DIFFERENTIAL Routine 06/18/2017 Results for 10:35 AM CDT this procedure are in the results section. LAB ONLY-COMPLETE BLOOD COUNT Routine 06/18/2017 Results for WITH DIFFERENTIAL 10:35 AM CDT this procedure are in the results section. TROPONIN I Timed Routine 06/18/2017 Results for 10:35 AM CDT this procedure are in the results section. COMPREHENSIVE METABOLIC PANEL Routine 06/18/2017 Results for 10:35 AM CDT this procedure are in the results section. COMPLETE BLOOD COUNT WITH Routine 06/18/2017 Results for DIFFERENTIAL 10:35 AM CDT this procedure are in the results section. TROPONIN I Timed Routine 06/18/2017 Results for 6:55 AM CDT this procedure are in the results section. COLLECT AND HOLD GREEN TOP TUBE Routine 06/17/2017 Results for 10:52 PM CDT this procedure are in the results section. LIPASE STAT 06/17/2017 Results for 10:52 PM CDT this procedure are in the results section. LAB ONLY-MANUAL DIFFERENTIAL Routine 06/17/2017 Results for 9:48 PM CDT this procedure are in the results section. LAB ONLY-COMPLETE BLOOD COUNT STAT 06/17/2017 Results for WITH DIFFERENTIAL 9:48 PM CDT this procedure are in the results section. TROPONIN I Timed Routine 06/17/2017 Results for 9:48 PM CDT this procedure are in the results section. MAGNESIUM STAT 06/17/2017 Results for 9:48 PM CDT this procedure are in the results section. COMPREHENSIVE METABOLIC PANEL STAT 06/17/2017 Results for 9:48 PM CDT this procedure are in the results section. COMPLETE BLOOD COUNT WITH STAT 06/17/2017 Results for DIFFERENTIAL 9:48 PM CDT this procedure are in the results section. LAB ONLY-MANUAL DIFFERENTIAL Routine 06/17/2017 Results for 5:24 AM CDT this procedure are in the results section. LAB ONLY-COMPLETE BLOOD COUNT Routine 06/17/2017 Results for WITH DIFFERENTIAL 5:24 AM CDT this procedure are in the results section. COMPLETE BLOOD COUNT WITH Routine 06/17/2017 Results for DIFFERENTIAL 5:24 AM CDT this procedure are in the results section. LAB ONLY-MANUAL DIFFERENTIAL Routine 06/16/2017 Results for 5:29 AM CDT this procedure are in the results section. LAB ONLY-COMPLETE BLOOD COUNT Routine 06/16/2017 Results for WITH DIFFERENTIAL 5:29 AM CDT this procedure are in the results section. COMPLETE BLOOD COUNT WITH Routine 06/16/2017 Results for DIFFERENTIAL 5:29 AM CDT this procedure are in the results section. PERIPHERAL BLOOD SMEAR Routine 06/15/2017 Results for EXAMINATION 10:03 AM CDT this procedure are in the results section. LAB ONLY-ABORH Routine 06/15/2017 Results for 10:03 AM CDT this procedure are in the results section. DIRECT SYLVAIN Routine 06/15/2017 Results for 10:03 AM CDT this procedure are in the results section. C-REACTIVE PROTEIN Routine 06/15/2017 Results for (INFLAMMATION) 10:03 AM CDT this procedure are in the results section. HAPTOGLOBIN Routine 06/15/2017 Results for 10:03 AM CDT this procedure are in the results section. LDH TOTAL Routine 06/15/2017 Results for 10:03 AM CDT this procedure are in the results section. LAB ONLY-COMPLETE BLOOD COUNT Routine 06/15/2017 Results for WITH DIFFERENTIAL 5:16 AM CDT this procedure are in the results section. COMPREHENSIVE METABOLIC PANEL Routine 06/15/2017 Results for 5:16 AM CDT this procedure are in the results section. COMPLETE BLOOD COUNT WITH Routine 06/15/2017 Results for DIFFERENTIAL 5:16 AM CDT this procedure are in the results section. ESOPHAGOGASTRODUODENOSCOPY 06/14/2017 Results for 4:38 PM CDT this procedure are in the results section. UPPER ENDOSCOPY 06/14/2017 GI bleed 4:30 PM CDT LACTIC ACID GIO 06/14/2017 Results for 9:02 AM CDT this procedure are in the results section. LAB ONLY-MANUAL DIFFERENTIAL Routine 06/14/2017 Results for 4:54 AM CDT this procedure are in the results section. LAB ONLY-COMPLETE BLOOD COUNT Routine 06/14/2017 Results for WITH DIFFERENTIAL 4:54 AM CDT this procedure are in the results section. IRON AND TIBC Routine 06/14/2017 Results for 4:54 AM CDT this procedure are in the results section. RETIC COUNT Routine 06/14/2017 Results for 4:54 AM CDT this procedure are in the results section. FOLATE, SERUM Routine 06/14/2017 Results for 4:54 AM CDT this procedure are in the results section. VITAMIN B12 Routine 06/14/2017 Results for 4:54 AM CDT this procedure are in the results section. FERRITIN Routine 06/14/2017 Results for 4:54 AM CDT this procedure are in the results section. MAGNESIUM Routine 06/14/2017 Results for 4:54 AM CDT this procedure are in the results section. RENAL FUNCTION PANEL Routine 06/14/2017 Results for 4:54 AM CDT this procedure are in the results section. COMPLETE BLOOD COUNT WITH Routine 06/14/2017 Results for DIFFERENTIAL 4:54 AM CDT this procedure are in the results section. BRAIN NATRIURETIC PEPTIDE Routine 06/14/2017 Results for 4:54 AM CDT this procedure are in the results section. TYPE AND SCREEN GIO 06/14/2017 Results for 12:17 AM CDT this procedure are in the results section. HEMOGLOBIN GIO 06/14/2017 Results for 12:17 AM CDT this procedure are in the results section. LAB ONLY-COMPLETE BLOOD COUNT Routine 06/13/2017 Results for WITH DIFFERENTIAL 4:51 AM CDT this procedure are in the results section. C-REACTIVE PROTEIN Routine 06/13/2017 Results for (INFLAMMATION) 4:51 AM CDT this procedure are in the results section. BASIC METABOLIC PANEL Routine 06/13/2017 Results for 4:51 AM CDT this procedure are in the results section. COMPLETE BLOOD COUNT WITH Routine 06/13/2017 Results for DIFFERENTIAL 4:51 AM CDT this procedure are in the results section. BLOOD GASES ARTERIAL STAT 06/12/2017 Results for 4:25 PM CDT this procedure are in the results section. LAB ONLY-MANUAL DIFFERENTIAL STAT 06/12/2017 Results for 2:51 PM CDT this procedure are in the results section. LAB ONLY-COMPLETE BLOOD COUNT STAT 06/12/2017 Results for WITH DIFFERENTIAL 2:51 PM CDT this procedure are in the results section. LACTIC ACID STAT 06/12/2017 Results for 2:51 PM CDT this procedure are in the results section. COMPREHENSIVE METABOLIC PANEL STAT 06/12/2017 Results for 2:51 PM CDT this procedure are in the results section. COMPLETE BLOOD COUNT WITH STAT 06/12/2017 Results for DIFFERENTIAL 2:51 PM CDT this procedure are in the results section. in this encounter Results XRAY CHEST PA AND LATERAL - (06/19/2017 12:29 PM) Specimen Performing Laboratory PS360 Narrative Patient Name: DARYL OLVERA Date of :1950 Procedure: XRAY CHEST PA AND LATERAL Date of Service: 06/19/2017 EXAM: XRAY CHEST PA AND LATERAL INDICATION:sob, tachypneic COMPARISON(S): X-ray from 06/17/2017. FINDINGS: Spiculated nodule is projecting within the right upper lobe. Findings concerning for malignancy. Heart size and vascularity is within normal limits. No dense consolidation or pleural fluid evident. There is underlying lung hyperinflation with flattening of the hemidiaphragms. Multilevel degenerative changes present of the thoracic spine on the lateral view. PICC line is in place. The tip is within the mid SVC. IMPRESSION: 1. Spiculated nodule within the right upper lobe. Suspicious for malignancy. 2. PICC line in place. No pneumothorax. 3. Normal heart size. Clear lungs. 4. Underlying emphysema and lung hyperinflation. Finalized by: Rhett Rangel MD on 06/19/2017 12:59 PM Patient/Procedure Information: [facility] MRN/JESUS: [id number] Order Number: [id number] Accession Number: [id number] Ordering Provider: NATALI HANNA Authorizing Provider: NATALI HANNA Procedure Note Interface, Radiantres - 06/19/2017 1:01 PM CDT Patient Name: DARYL OLVERA Date of : 1950 Procedure: XRAY CHEST PA AND LATERAL Date of Service: 06/19/2017 EXAM: XRAY CHEST PA AND LATERAL INDICATION:sob, tachypneic COMPARISON(S): X-ray from 06/17/2017. FINDINGS: Spiculated nodule is projecting within the right upper lobe. Findings concerning for malignancy. Heart size and vascularity is within normal limits. No dense consolidation or pleural fluid evident. There is underlying lung hyperinflation with flattening of the hemidiaphragms. Multilevel degenerative changes present of the thoracic spine on the lateral view. PICC line is in place. The tip is within the mid SVC. IMPRESSION: 1. Spiculated nodule within the right upper lobe. Suspicious for malignancy. 2. PICC line in place. No pneumothorax. 3. Normal heart size. Clear lungs. 4. Underlying emphysema and lung hyperinflation. Finalized by: Rhett Rangel MD on 06/19/2017 12:59 PM Patient/Procedure Information: [facility] MRN/JESUS: [id number] Order Number: [id number] Accession Number: [id number] Ordering Provider: NATALI HANNA Authorizing Provider: NATALI HANNA LAB ONLY-MANUAL DIFFERENTIAL (06/19/2017 5:59 AM) Component Value Ref Range Neutrophils Abs. (Segs and Bands) 90372 /uL Seg Neut Absolute 23.6 (H) 1.8 - 8.0 K/uL Band Absolute 0.8 (H) 0.0 - 0.7 K/uL Lymphocytes Absolute 2.2 0.8 - 4.1 K/uL Monocytes Absolute 1.1 (H) 0.0 - 1.0 K/uL Eosinophils Absolute 0.3 0.0 - 0.7 K/uL Neutrophils Percent 84.0 % Band Percent 3.0 % Lymphocytes Percent 8.0 % Monocytes Percent 4.0 % Eosinophils Percent 1.0 % Platelet Morphology Normal RBC Morphology Normal Basophilic Stippling Present Specimen Performing Laboratory Blood [address] [address] LAB ONLY-COMPLETE BLOOD COUNT WITH DIFFERENTIAL (06/19/2017 5:59 AM) Component Value Ref Range WBC 28.1 (H) 4.0 - 11.0 K/uL RBC 3.51 (L) 4.40 - 5.80 M/uL Hemoglobin 9.1 (L) 13.5 - 17.5 g/dL Hematocrit 28.7 (L) 40.0 - 50.0 % MCV 81.8 80.0 - 98.0 fL MCH 25.9 25.5 - 34.0 pg MCHC 31.7 31.5 - 36.5 g/dL RDW-CV 16.0 (H) 11.5 - 15.5 % RDW-SD 47.7 35.5 - 50.0 fl Platelet Count 375 140 - 400 K/uL MPV 9.4 8.5 - 12.0 fL Specimen Performing Laboratory Blood [address] [address] TROPONIN I (06/19/2017 5:59 AM) Component Value Ref Range Troponin I 0.002 0.000 - 0.028 ng/mL Specimen Performing Laboratory Blood [address] [address] COMPLETE BLOOD COUNT WITH DIFFERENTIAL (06/19/2017 5:59 AM) Specimen Performing Laboratory Blood Narrative The following orders were created for panel order COMPLETE BLOOD COUNT WITH DIFFERENTIAL. Procedure Abnormality Status --------- ------ LAB ONLY-COMPLETE BLOOD ...[[id number]]AbnormalFinal result LAB ONLY-MANUAL DIFFEREN...[[id number]]AbnormalFinal result Please view results for these tests on the individual orders. TROPONIN I (06/19/2017 1:50 AM) Component Value Ref Range Troponin I 0.006 0.000 - 0.028 ng/mL Specimen [place] [address] TROPONIN I (06/18/2017 4:23 PM) Component Value Ref Range Troponin I 0.007 0.000 - 0.028 ng/mL Specimen [place] [address] LAB ONLY-MANUAL DIFFERENTIAL (06/18/2017 10:35 AM) Component Value Ref Range Neutrophils Abs. (Segs and Bands) 15962 /uL Seg Neut Absolute 20.7 (H) 1.8 - 8.0 K/uL Band Absolute 1.0 (H) 0.0 - 0.7 K/uL Lymphocytes Absolute 1.0 0.8 - 4.1 K/uL Monocytes Absolute 1.2 (H) 0.0 - 1.0 K/uL Eosinophils Absolute 0.2 0.0 - 0.7 K/uL Metamyelocyte Absolute 0.2 (H) 0.0 - 0.1 K/uL Neutrophils Percent 85.0 % Band Percent 4.0 % Lymphocytes Percent 4.0 % Monocytes Percent 5.0 % Eosinophils Percent 1.0 % Metamyelocytes Percent 1.0 % Platelet Morphology Normal RBC Morphology Normal Specimen Performing Laboratory Blood [address] [address] LAB ONLY-COMPLETE BLOOD COUNT WITH DIFFERENTIAL (06/18/2017 10:35 AM) Component Value Ref Range WBC 24.3 (H) 4.0 - 11.0 K/uL RBC 3.56 (L) 4.40 - 5.80 M/uL Hemoglobin 9.4 (L) 13.5 - 17.5 g/dL Hematocrit 29.1 (L) 40.0 - 50.0 % MCV 81.7 80.0 - 98.0 fL MCH 26.4 25.5 - 34.0 pg MCHC 32.3 31.5 - 36.5 g/dL RDW-CV 15.9 (H) 11.5 - 15.5 % RDW-SD 47.5 35.5 - 50.0 fl Platelet Count 384 140 - 400 K/uL MPV 9.4 8.5 - 12.0 fL Specimen Performing Laboratory Blood [address] [address] COMPREHENSIVE METABOLIC PANEL (06/18/2017 10:35 AM) Component Value Ref Range Glucose 169 (H) 70 - 100 mg/dL BUN 16 6 - 22 mg/dL Creatinine 0.57 (L) 0.80 - 1.30 mg/dL BUN/Creatinine Ratio 28.1 (H) 10.0 - 25.0 Sodium 134 (L) 135 - 145 meq/L Potassium 3.7 3.5 - 5.3 meq/L Chloride 99 99 - 110 meq/L CO2 29 20 - 29 meq/L Anion Gap with K 10 6 - 20 meq/L Calcium 8.7 8.5 - 10.5 mg/dL Protein Total 5.4 (L) 6.0 - 8.2 g/dL Albumin 2.6 (L) 3.5 - 5.0 g/dL Alkaline Phosphatase 124 30 - 150 U/L AST - SGOT 53 (H) 0 - 35 U/L ALT - SGPT 127 (H) 0 - 55 U/L Bilirubin Total 0.3 0.2 - 1.2 mg/dL Corrected Calcium 9.8 8.5 - 10.5 mg/dL Age 66 Years eGFR Non- >90 >=60 mL/min/1.73m2 eGFR >90 >=60 mL/min/1.73m2 Specimen Performing Laboratory Blood [address] [address] COMPLETE BLOOD COUNT WITH DIFFERENTIAL (06/18/2017 10:35 AM) Specimen Performing Laboratory Blood Narrative The following orders were created for panel order COMPLETE BLOOD COUNT WITH DIFFERENTIAL. Procedure Abnormality Status --------- ------ LAB ONLY-COMPLETE BLOOD ...[[id number]]AbnormalFinal result LAB ONLY-MANUAL DIFFEREN...[[id number]]AbnormalFinal result Please view results for these tests on the individual orders. TROPONIN I (06/18/2017 10:35 AM) Component Value Ref Range Troponin I 0.013 0.000 - 0.028 ng/mL Specimen Performing Laboratory Blood [address] [address] TROPONIN I (06/18/2017 6:55 AM) Component Value Ref Range Troponin I 0.016 0.000 - 0.028 ng/mL Specimen Performing Laboratory Blood [address] [address] XRAY CHEST PORTABLE - (06/17/2017 11:23 PM)Only the most recent of2 resultswithin the time period is included. Specimen Performing Laboratory PS360 Narrative Patient Name: DARYL OLVERA Date of :1950 Procedure: XRAY CHEST PORTABLE Date of Service: 06/17/2017 EXAM: XRAY CHEST PORTABLE INDICATION:Chest Pain COMPARISON(S): 06/13/2017 FINDINGS: A single frontal view of the chest was obtained with portable technique. Heart and mediastinum are unremarkable. Lungs are clear. No pleural effusion seen. No pneumothorax or mediastinal widening is present. The left-sided PICC projects with the tip upon the SVC. IMPRESSION: No pneumothorax or mediastinal widening. Finalized by: Stephen Purvis MD on 06/18/2017 12:14 AM Patient/Procedure Information: [facility] MRN/JESUS: [id number] Order Number: [id number] Accession Number: [id number] Ordering Provider: JOVANI POWELL Authorizing Provider: JOVANI POWELL Procedure Note Interface, Radiantres - 06/18/2017 12:16 AM CDT Patient Name: DARYL OLVERA Date of : 1950 Procedure: XRAY CHEST PORTABLE Date of Service: 06/17/2017 EXAM: XRAY CHEST PORTABLE INDICATION:Chest Pain COMPARISON(S): 06/13/2017 FINDINGS: A single frontal view of the chest was obtained with portable technique. Heart and mediastinum are unremarkable. Lungs are clear. No pleural effusion seen. No pneumothorax or mediastinal widening is present. The left-sided PICC projects with the tip upon the SVC. IMPRESSION: No pneumothorax or mediastinal widening. Finalized by: Stephen Purvis MD on 06/18/2017 12:14 AM Patient/Procedure Information: [facility] MRN/JESUS: [id number] Order Number: [id number] Accession Number: [id number] Ordering Provider: JOVANI POWELL Authorizing Provider: JOVANI POWELL LIPASE (06/17/2017 10:52 PM) Component Value Ref Range Lipase 26 5 - 80 U/L Specimen [place] [address] COLLECT AND HOLD GREEN TOP TUBE (06/17/2017 10:52 PM) Component Value Ref Range Collect and Hold Specimen Status Comment: RECEIVED Specimen [place] [address] EKG 12 LEAD (06/17/2017 10:02 PM)Only the most recent of2 resultswithin the time period is included. Component Value Ref Range EKG WAVEFORM Supraventricular tachycardia with Premature ventricular complexes or Fusion complexes: Low voltage QRS, consider pulmonary disease, pericardial effusion, or normal variant: Right bundle branch block: T wave abnormality, consider inferolateral ischemia: Abnormal ECG: Rate faster Ventricular Rate: 188 BPM Atrial Rate: 197 BPM QRS Duration: 110 ms Q-T Interval: 228 ms QTC Calculation(Bazett): 403 ms Calculated R Woodruff: 106 degrees Calculated T Woodruff: -108 degrees LAB ONLY-MANUAL DIFFERENTIAL (06/17/2017 9:48 PM) Component Value Ref Range Neutrophils Abs. (Segs and Bands) 90803 /uL Seg Neut Absolute 27.3 (H) 1.8 - 8.0 K/uL Band Absolute 0.7 0.0 - 0.7 K/uL Lymphocytes Absolute 3.4 0.8 - 4.1 K/uL Monocytes Absolute 1.0 0.0 - 1.0 K/uL Metamyelocyte Absolute 0.3 (H) 0.0 - 0.1 K/uL Myelocyte Absolute 1.0 (H) 0.0 - 0.0 K/uL Promyelocyte Absolute 0.3 (H) 0.0 - 0.0 K/uL Neutrophils Percent 80.0 % Band Percent 2.0 % Lymphocytes Percent 10.0 % Monocytes Percent 3.0 % Metamyelocytes Percent 1.0 % Myelocyte Percent 3.0 % Promyelocyte Percent 1.0 % Platelet Estimate Increased Platelet Morphology Normal Basophilic Stippling Present Vacuolated Neutrophils Present (A) (none) Specimen [place] [address] LAB ONLY-COMPLETE BLOOD COUNT WITH DIFFERENTIAL (06/17/2017 9:48 PM) Component Value Ref Range WBC 34.1 (H) 4.0 - 11.0 K/uL RBC 4.13 (L) 4.40 - 5.80 M/uL Hemoglobin 10.5 (L) 13.5 - 17.5 g/dL Hematocrit 34.4 (L) 40.0 - 50.0 % MCV 83.3 80.0 - 98.0 fL MCH 25.4 (L) 25.5 - 34.0 pg MCHC 30.5 (L) 31.5 - 36.5 g/dL RDW-CV 15.7 (H) 11.5 - 15.5 % RDW-SD 47.8 35.5 - 50.0 fl Platelet Count 487 (H) 140 - 400 K/uL MPV 9.8 8.5 - 12.0 fL Specimen Performing Laboratory Blood [address] [address] MAGNESIUM (06/17/2017 9:48 PM) Component Value Ref Range Magnesium 2.2 1.8 - 2.4 mg/dL Specimen Performing Laboratory [address] [address] [address] COMPREHENSIVE METABOLIC PANEL (06/17/2017 9:48 PM) Component Value Ref Range Glucose 202 (H) 70 - 100 mg/dL BUN 18 6 - 22 mg/dL Creatinine 0.62 (L) 0.80 - 1.30 mg/dL BUN/Creatinine Ratio 29.0 (H) 10.0 - 25.0 Sodium 137 135 - 145 meq/L Potassium 4.2 3.5 - 5.3 meq/L Chloride 101 99 - 110 meq/L CO2 29 20 - 29 meq/L Anion Gap with K 11 6 - 20 meq/L Calcium 9.3 8.5 - 10.5 mg/dL Protein Total 6.2 6.0 - 8.2 g/dL Albumin 3.0 (L) 3.5 - 5.0 g/dL Alkaline Phosphatase 166 (H) 30 - 150 U/L AST - SGOT 78 (H) 0 - 35 U/L ALT - SGPT 178 (H) 0 - 55 U/L Bilirubin Total 0.2 0.2 - 1.2 mg/dL Corrected Calcium 10.1 8.5 - 10.5 mg/dL Age 66 Years eGFR Non- >90 >=60 mL/min/1.73m2 eGFR >90 >=60 mL/min/1.73m2 Specimen Performing Laboratory Blood [address] [address] COMPLETE BLOOD COUNT WITH DIFFERENTIAL (06/17/2017 9:48 PM) Specimen Performing Laboratory Blood Narrative The following orders were created for panel order COMPLETE BLOOD COUNT WITH DIFFERENTIAL. Procedure Abnormality Status --------- ------ LAB ONLY-COMPLETE BLOOD ...[[id number]]AbnormalFinal result LAB ONLY-MANUAL DIFFEREN...[[id number]]AbnormalFinal result Please view results for these tests on the individual orders. TROPONIN I (06/17/2017 9:48 PM) Component Value Ref Range Troponin I 0.011 0.000 - 0.028 ng/mL Specimen Performing Laboratory Blood [address] [address] LAB ONLY-MANUAL DIFFERENTIAL (06/17/2017 5:24 AM) Component Value Ref Range Neutrophils Abs. (Segs and Bands) 34975 /uL Seg Neut Absolute 20.8 (H) 1.8 - 8.0 K/uL Band Absolute 1.7 (H) 0.0 - 0.7 K/uL Lymphocytes Absolute 1.9 0.8 - 4.1 K/uL Monocytes Absolute 1.9 (H) 0.0 - 1.0 K/uL Eosinophils Absolute 0.3 0.0 - 0.7 K/uL Myelocyte Absolute 1.1 (H) 0.0 - 0.0 K/uL Neutrophils Percent 75.0 % Band Percent 6.0 % Lymphocytes Percent 7.0 % Monocytes Percent 7.0 % Eosinophils Percent 1.0 % Myelocyte Percent 4.0 % Platelet Morphology Normal Polychromasia 1+ Specimen Performing Laboratory Blood [address] [address] LAB ONLY-COMPLETE BLOOD COUNT WITH DIFFERENTIAL (06/17/2017 5:24 AM) Component Value Ref Range WBC 27.7 (H) 4.0 - 11.0 K/uL RBC 4.11 (L) 4.40 - 5.80 M/uL Hemoglobin 10.7 (L) 13.5 - 17.5 g/dL Hematocrit 34.4 (L) 40.0 - 50.0 % MCV 83.7 80.0 - 98.0 fL MCH 26.0 25.5 - 34.0 pg MCHC 31.1 (L) 31.5 - 36.5 g/dL RDW-CV 15.5 11.5 - 15.5 % RDW-SD 47.2 35.5 - 50.0 fl Platelet Count 454 (H) 140 - 400 K/uL MPV 9.7 8.5 - 12.0 fL Specimen Performing Laboratory Blood [address] [address] COMPLETE BLOOD COUNT WITH DIFFERENTIAL (06/17/2017 5:24 AM) Specimen Performing Laboratory Blood Narrative The following orders were created for panel order COMPLETE BLOOD COUNT WITH DIFFERENTIAL. Procedure Abnormality Status --------- ------ LAB ONLY-COMPLETE BLOOD ...[[id number]]AbnormalFinal result LAB ONLY-MANUAL DIFFEREN...[[id number]]AbnormalFinal result Please view results for these tests on the individual orders. LAB ONLY-MANUAL DIFFERENTIAL (06/16/2017 5:29 AM) Component Value Ref Range Neutrophils Abs. (Segs and Bands) 23376 /uL Seg Neut Absolute 23.3 (H) 1.8 - 8.0 K/uL Band Absolute 0.8 (H) 0.0 - 0.7 K/uL Lymphocytes Absolute 0.8 0.8 - 4.1 K/uL Monocytes Absolute 1.3 (H) 0.0 - 1.0 K/uL Neutrophils Percent 89.0 % Band Percent 3.0 % Lymphocytes Percent 3.0 % Monocytes Percent 5.0 % Platelet Morphology Normal RBC Morphology Normal Specimen Performing Laboratory Blood [address] [address] LAB ONLY-COMPLETE BLOOD COUNT WITH DIFFERENTIAL (06/16/2017 5:29 AM) Component Value Ref Range WBC 26.2 (H) 4.0 - 11.0 K/uL RBC 3.60 (L) 4.40 - 5.80 M/uL Hemoglobin 9.6 (L) 13.5 - 17.5 g/dL Hematocrit 29.4 (L) 40.0 - 50.0 % MCV 81.7 80.0 - 98.0 fL MCH 26.7 25.5 - 34.0 pg MCHC 32.7 31.5 - 36.5 g/dL RDW-CV 15.5 11.5 - 15.5 % RDW-SD 46.5 35.5 - 50.0 fl Platelet Count 446 (H) 140 - 400 K/uL MPV 9.4 8.5 - 12.0 fL Specimen Performing Laboratory Blood [address] [address] COMPLETE BLOOD COUNT WITH DIFFERENTIAL (06/16/2017 5:29 AM) Specimen Performing Laboratory Blood Narrative The following orders were created for panel order COMPLETE BLOOD COUNT WITH DIFFERENTIAL. Procedure Abnormality Status --------- ------ LAB ONLY-COMPLETE BLOOD ...[[id number]]AbnormalFinal result LAB ONLY-MANUAL DIFFEREN...[[id number]]AbnormalFinal result Please view results for these tests on the individual orders. CT ABDOMEN PELVIS WITH CONTRAST (06/15/2017 1:54 PM) Specimen Performing Laboratory PS360 Narrative Patient Name: DARYL OLVERA Date of :1950 Procedure: CT ABDOMEN PELVIS WITH CONTRAST Date of Service: 06/15/2017 EXAM: CT ABDOMEN PELVIS WITH CONTRAST INDICATION:66 yo male with significant leukocytosis, wants to r/o infection. TECHNIQUE: CT imaging was performed through the abdomen and pelvis following IV contrast. COMPARISON(S): CT chest 05/01/2017 FINDINGS: At the lung bases there is atelectasis in the right lower lobe. The appearance of this soft tissue density is little bit unusual or atelectasis. This could be a pleural-based mass although I favor this being round atelectasis on image 13 of 1:30. There is a CT of the chest dated 05/01/2017 and this was not present on that exam which almost certainly guarantees that this represents atelectasis rather than a round soft tissue mass. Both adrenal glands are grossly abnormal heterogeneous masses the right 44 mm the left is 35 mm and these are new compared to the previous CT of the chest 2017. There is a 16 mm round heterogeneous hypodense mass in the medial midpole left kidney. Otherwise the kidneys negative. Right kidney is negative. Don't see any significant retroperitoneal or mesenteric lymph nodes or masses. Small bowel and colon the appendix generally unremarkable. Liver and spleen are negative. Pancreas is negative. Gallbladder contains a few small gallstones dependently otherwise negative. Bladder is negative prostates calcified no suspicious adenopathy down the pelvis. There is a fracture involving the anterior superior pubic ramus on the right side and an old healed fracture on the left. 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 I don't see any suspicious bony lesions for metastatic disease. There is a 15 mm subcutaneous nodule mildly heterogeneous on the left side image 91. IMPRESSION: 1. New bilateral adrenal masses. This almost certainly represents metastatic disease. 2. Soft tissue mass down the right lower lobe I think is probably more likely to be atelectasis. There actually appears to be some hypodense material within the right lower lobe bronchus just adjacent to this on image 3 which may account for resorptive atelectasis in this basilar segments or subsegments. 3. I reviewed the CT scan chest from 05/01/2017. Appears to be a soft tissue mass in the anterior right upper lobe adjacent to the manubrial clavicular joint this is worrisome for primary malignancy. 4. 2 soft tissue nodules image 71 and image 91 suspicious for subcutaneous metastases left abdomen. 5. Ununited anterior right pelvic fracture. Finalized by: Hunter Ramirez MD on 06/15/2017 3:21 PM Patient/Procedure Information: [facility] MRN/JESUS: [id number] Order Number: [id number] Accession Number: [id number] Ordering Provider: MAX CARDONA Authorizing Provider: MAX CARDONA Procedure Note Interface, Radiantres - 06/15/2017 3:23 PM CDT Patient Name: DARYL OLVERA Date of : 1950 Procedure: CT ABDOMEN PELVIS WITH CONTRAST Date of Service: 06/15/2017 EXAM: CT ABDOMEN PELVIS WITH CONTRAST INDICATION:66 yo male with significant leukocytosis, wants to r/o infection. TECHNIQUE: CT imaging was performed through the abdomen and pelvis following IV contrast. COMPARISON(S): CT chest 05/01/2017 FINDINGS: At the lung bases there is atelectasis in the right lower lobe. The appearance of this soft tissue density is little bit unusual or atelectasis. This could be a pleural-based mass although I favor this being round atelectasis on image 13 of 1:30. There is a CT of the chest dated and this was not present on that exam which almost certainly guarantees that this represents atelectasis rather than a round soft tissue mass. Both adrenal glands are grossly abnormal heterogeneous masses the right 44 mm the left is 35 mm and these are new compared to the previous CT of the chest 05/01. There is a 16 mm round heterogeneous hypodense mass in the medial midpole left kidney. Otherwise the kidneys negative. Right kidney is negative. Don't see any significant retroperitoneal or mesenteric lymph nodes or masses. Small bowel and colon the appendix generally unremarkable. Liver and spleen are negative. Pancreas is negative. Gallbladder contains a few small gallstones dependently otherwise negative. Bladder is negative prostates calcified no suspicious adenopathy down the pelvis. There is a fracture involving the anterior superior pubic ramus on the right side and an old healed fracture on the left. 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 I don't see any suspicious bony lesions for metastatic disease. There is a 15 mm subcutaneous nodule mildly heterogeneous on the left side image 91. IMPRESSION: 1. New bilateral adrenal masses. This almost certainly represents metastatic disease. 2. Soft tissue mass down the right lower lobe I think is probably more likely to be atelectasis. There actually appears to be some hypodense material within the right lower lobe bronchus just adjacent to this on image 3 which may account for resorptive atelectasis in this basilar segments or subsegments. 3. I reviewed the CT scan chest from 05/01/2017. Appears to be a soft tissue mass in the anterior right upper lobe adjacent to the manubrial clavicular joint this is worrisome for primary malignancy. 4. 2 soft tissue nodules image 71 and image 91 suspicious for subcutaneous metastases left abdomen. 5. Ununited anterior right pelvic fracture. Finalized by: Hunter Ramirez MD on 06/15/2017 3:21 PM Patient/Procedure Information: [facility] MRN/JESUS: [id number] Order Number: [id number] Accession Number: [id number] Ordering Provider: MAX CARDONA Authorizing Provider: MAX CARDONA LAB ONLY-[facility] (06/15/2017 10:03 AM) Component Value Ref Range ABO Type B Rh Type Positive Specimen Performing Laboratory Blood [facility] [address] [place] [address] C-REACTIVE PROTEIN QUANTITATIVE (06/15/2017 10:03 AM) Component Value Ref Range CRP 99.7 (H) 0.0 - 8.0 mg/L Specimen Performing Laboratory Blood [address] [address] DIRECT SYLVAIN (06/15/2017 10:03 AM) Component Value Ref Range ANDRES Polyspecific Interpretation Negative Specimen Performing Laboratory Blood [facility] [address] [place] [address] HAPTOGLOBIN (06/15/2017 10:03 AM) Component Value Ref Range Haptoglobin 363 (H) 30 - 220 mg/dL Specimen Performing Laboratory Blood [address] [address] LDH TOTAL (06/15/2017 10:03 AM) Component Value Ref Range LDH Total 316 (H) 125 - 245 U/L Specimen Performing Laboratory Blood [address] [address] PERIPHERAL BLOOD SMEAR EXAMINATION (06/15/2017 10:03 AM) Component Value Ref Range PERIPHERAL SMEAR EXAMINATION Peripheral Smear does not meet Criteria for Pathology ReviewComment: Patient has abnormal iron studies. Specimen Performing Laboratory Blood [address] [address] LAB ONLY-COMPLETE BLOOD COUNT WITH DIFFERENTIAL (06/15/2017 5:16 AM) Component Value Ref Range WBC 21.9 (H) 4.0 - 11.0 K/uL RBC 3.37 (L) 4.40 - 5.80 M/uL Hemoglobin 8.8 (L) 13.5 - 17.5 g/dL Hematocrit 28.0 (L) 40.0 - 50.0 % MCV 83.1 80.0 - 98.0 fL MCH 26.1 25.5 - 34.0 pg MCHC 31.4 (L) 31.5 - 36.5 g/dL RDW-CV 15.4 11.5 - 15.5 % RDW-SD 47.4 35.5 - 50.0 fl Platelet Count 400 140 - 400 K/uL MPV 9.9 8.5 - 12.0 fL Seg Neut Absolute 18.6 (H) 1.8 - 8.0 K/uL Lymphocytes Absolute 1.0 0.8 - 4.1 K/uL Monocytes Absolute 1.6 (H) 0.0 - 1.0 K/uL Eosinophils Absolute 0.0 0.0 - 0.7 K/uL Basophil Absolute 0.0 0.0 - 0.2 K/uL Immature Granulocyte Absolute 0.73 (H) 0.00 - 0.06 K/uL Neutrophils Abs. (Segs and Bands) 31692 /uL Neutrophils Percent 84.9 % Lymphocytes Percent 4.4 % Monocytes Percent 7.3 % Immature Granulocyte Percent 3.3 % Eosinophils Percent 0.0 % Basophil Percent 0.1 % Specimen Performing Laboratory Blood [address] [address] COMPREHENSIVE METABOLIC PANEL (06/15/2017 5:16 AM) Component Value Ref Range Glucose 122 (H) 70 - 100 mg/dL BUN 14 6 - 22 mg/dL Creatinine 0.55 (L) 0.80 - 1.30 mg/dL BUN/Creatinine Ratio 25.5 (H) 10.0 - 25.0 Sodium 138 135 - 145 meq/L Potassium 4.4 3.5 - 5.3 meq/L Chloride 100 99 - 110 meq/L CO2 29 20 - 29 meq/L Anion Gap with K 13 6 - 20 meq/L Calcium 9.3 8.5 - 10.5 mg/dL Protein Total 5.6 (L) 6.0 - 8.2 g/dL Albumin 2.7 (L) 3.5 - 5.0 g/dL Alkaline Phosphatase 100 30 - 150 U/L AST - SGOT 37 (H) 0 - 35 U/L ALT - SGPT 80 (H) 0 - 55 U/L Bilirubin Total 0.3 0.2 - 1.2 mg/dL Corrected Calcium 10.3 8.5 - 10.5 mg/dL Age 66 Years eGFR Non- >90 >=60 mL/min/1.73m2 eGFR >90 >=60 mL/min/1.73m2 Specimen Performing Laboratory Blood [address] [address] COMPLETE BLOOD COUNT WITH DIFFERENTIAL (06/15/2017 5:16 AM) Specimen Performing Laboratory Blood Narrative The following orders were created for panel order COMPLETE BLOOD COUNT WITH DIFFERENTIAL. Procedure Abnormality Status --------- ------ LAB ONLY-COMPLETE BLOOD ...[[id number]]AbnormalFinal result Please view results for these tests on the individual orders. ESOPHAGOGASTRODUODENOSCOPY (06/14/2017 4:38 PM) Component Value Ref Range EGD [facility] __ Patient Name: Daryl Olvera Procedure Date: 06/14/2017 4: 38 PM Date of : 1950dmit Type: Inpatient Age: 66 Gender: Male Surgeon: KAYY XIE MD __ Procedure:Upper GI endoscopy Indications:Suspected acute post hemorrhagic anemia, Hematemesis Providers:KAYY XIE MD, KARLOS DEL RIO RN, ADAN FISHER RN Medicines:Lidocaine spray, Oxygen 2 L/min, Monitored Anesthesia Care Complications:No immediate complications. Estimated Blood Loss: Estimated blood loss: none. Procedure: Pre-Anesthesia Assessment: - Prior to the procedure, a History and Physical was performed, and patient medications and allergies were reviewed. The risks and benefits of the procedure and the sedation options and risks were discussed with the patient. All questions were answered and informed consent was obtained. Patient identification and proposed procedure were verified by the physician. Mental Status Examination: alert and oriented. Airway Examination: normal oropharyngeal airway and neck mobility. Respiratory Examination: clear to auscultation. CV Examination: normal. Prophylactic Antibiotics: The patient does not require prophylactic antibiotics. Prior Anticoagulants: The patient has taken aspirin. ASA Grade Assessment: III - A patient with severe systemic disease. After reviewing the risks and benefits, the patient was deemed in satisfactory condition to undergo the procedure. The anesthesia plan was to use moderate sedation / analgesia (conscious sedation). Immediately prior to administration of medications, the patient was re-assessed for adequacy to receive sedatives. The physical status of the patient was re- assessed after the procedure. - Airway Examination: Mallampati Class III (part of the uvula and soft palate visualized). After obtaining informed consent, the endoscope was passed under direct vision. Throughout the procedure, the patient's blood pressure, pulse, and oxygen saturations were monitored continuously. The Endoscope [id number] was introduced through the mouth, and advanced to the third part of duodenum. The upper GI endoscopy was accomplished without difficulty. The patient tolerated the procedure well. Findings: LA Grade C (one or more mucosal breaks continuous between tops of 2 or more mucosal folds, less than 75% circumference) esophagitis with no bleeding was found 38 cm from the incisors. A 6 cm hiatal hernia was present. The stomach was normal. There was no endoscopic evidence of bleeding, erythema or inflammatory changes suggestive of gastritis or ulceration in the entire examined stomach. The examined duodenum was normal. There was no endoscopic evidence of bleeding, inflammation or ulceration in the entire examined duodenum. Impression: - LA Grade C reflux esophagitis. - 6 cm hiatal hernia. - Normal stomach. - Normal examined duodenum. - No specimens collected. Recommendation: - [facility]. - Use Prilosec (omeprazole) 20 mg PO BID daily. Procedure Code(s): --- Professional --- 42933, Esophagogastroduodenoscopy, flexible, transoral; diagnostic, including collection of specimen(s) by brushing or washing, when performed (separate procedure) --- Technical --- 22448, Esophagogastroduodenoscopy, flexible, transoral; diagnostic, including collection of specimen(s) by brushing or washing, when performed (separate procedure) Diagnosis Code(s): --- Professional --- K21.0, Gastro-esophageal reflux disease with esophagitis K44.9, Diaphragmatic hernia without obstruction or gangrene D62, Acute posthemorrhagic anemia K92.0, Hematemesis --- Technical --- K21.0, Gastro-esophageal reflux disease with esophagitis K44.9, Diaphragmatic hernia without obstruction or gangrene D62, Acute posthemorrhagic anemia K92.0, Hematemesis CPT copyright 2016 [employer]. All rights reserved. The codes documented in this report are preliminary and upon scholarship counselor review may be revised to meet current compliance requirements. Dr. Kayy Xie KAYY XIE MD 06/14/2017 5:01:12 PM This report has been signed electronically. Number of Addenda: 0 Note Initiated On: 06/14/2017 4:38 PM Total Procedure Duration Time 0 hours 2 minutes 30 seconds Scope In: 4:50:07 PM Scope Out: 4:52:37 PM LACTIC ACID (06/14/2017 9:02 AM) Component Value Ref Range Lactic Acid 0.7 0.5 - 2.2 mmol/L Specimen [place] [address] LAB ONLY-MANUAL DIFFERENTIAL (06/14/2017 4:54 AM) Component Value Ref Range Neutrophils Abs. (Segs and Bands) 34842 /uL Seg Neut Absolute 16.2 (H) 1.8 - 8.0 K/uL Band Absolute 1.5 (H) 0.0 - 0.7 K/uL Lymphocytes Absolute 2.7 0.8 - 4.1 K/uL Monocytes Absolute 3.1 (H) 0.0 - 1.0 K/uL Metamyelocyte Absolute 0.5 (H) 0.0 - 0.1 K/uL Myelocyte Absolute 0.2 (H) 0.0 - 0.0 K/uL Neutrophils Percent 67.0 % Band Percent 6.0 % Lymphocytes Percent 11.0 % Monocytes Percent 13.0 % Metamyelocytes Percent 2.0 % Myelocyte Percent 1.0 % Platelet Morphology Normal RBC Morphology Normal Specimen Performing Laboratory Blood [address] [address] LAB ONLY-COMPLETE BLOOD COUNT WITH DIFFERENTIAL (06/14/2017 4:54 AM) Component Value Ref Range WBC 24.2 (H) 4.0 - 11.0 K/uL RBC 3.27 (L) 4.40 - 5.80 M/uL Hemoglobin 8.5 (L) 13.5 - 17.5 g/dL Hematocrit 27.3 (L) 40.0 - 50.0 % MCV 83.5 80.0 - 98.0 fL MCH 26.0 25.5 - 34.0 pg MCHC 31.1 (L) 31.5 - 36.5 g/dL RDW-CV 15.3 11.5 - 15.5 % RDW-SD 47.5 35.5 - 50.0 fl Platelet Count 342 140 - 400 K/uL MPV 10.1 8.5 - 12.0 fL Specimen Performing Laboratory Blood [address] [address] BRAIN NATRIURETIC PEPTIDE (06/14/2017 4:54 AM) Component Value Ref Range BNP 271 (H) 0 - 100 pg/mL Specimen Performing Laboratory Blood [address] [address] VITAMIN B12 (06/14/2017 4:54 AM) Component Value Ref Range Vitamin B12 771 200 - 1000 pg/mL Specimen [place] [address] RETIC COUNT (06/14/2017 4:54 AM) Component Value Ref Range Reticulocyte Percent 2.5 (H) 0.5 - 1.8 % Reticulocyte Absolute 0.08 0.02 - 0.11 M/uL Immature Retic Fraction 13.5 3.0 - 16.0 % Retic Hemoglobin 21.9 (L) 29.0 - 38.0 pg Specimen Performing Laboratory Blood [address] [address] IRON AND TIBC (06/14/2017 4:54 AM) Component Value Ref Range Iron Total 20 (L) 65 - 175 ug/dL TIBC 199 (L) 250 - 400 ug/dL Iron Saturation 10 (L) 20 - 50 % Sat Specimen Performing Laboratory Blood [address] [address] FOLATE, SERUM (06/14/2017 4:54 AM) Component Value Ref Range Folate Serum 10.1 2.8 - 16.0 ng/mL Specimen Performing Laboratory Blood [address] [address] FERRITIN (06/14/2017 4:54 AM) Component Value Ref Range Ferritin 769 (H) 21 - 275 ng/mL Specimen Performing Laboratory Blood [address] [address] MAGNESIUM (06/14/2017 4:54 AM) Component Value Ref Range Magnesium 1.9 1.8 - 2.4 mg/dL Specimen Performing Laboratory Blood [address] [address] RENAL FUNCTION PANEL (06/14/2017 4:54 AM) Component Value Ref Range Glucose 119 (H) 70 - 100 mg/dL BUN 16 6 - 22 mg/dL Creatinine 0.56 (L) 0.80 - 1.30 mg/dL BUN/Creatinine Ratio 28.6 (H) 10.0 - 25.0 Sodium 137 135 - 145 meq/L Potassium 4.0 3.5 - 5.3 meq/L Chloride 99 99 - 110 meq/L CO2 31 (H) 20 - 29 meq/L Anion Gap with K 11 6 - 20 meq/L Calcium 9.0 8.5 - 10.5 mg/dL Phosphorus 3.2 2.5 - 4.5 mg/dL Albumin 2.7 (L) 3.5 - 5.0 g/dL Corrected Calcium 10.0 8.5 - 10.5 mg/dL Age 66 Years eGFR Non- >90 >=60 mL/min/1.73m2 eGFR >90 >=60 mL/min/1.73m2 Specimen Performing Laboratory Blood [address] [address] COMPLETE BLOOD COUNT WITH DIFFERENTIAL (06/14/2017 4:54 AM) Specimen Performing Laboratory Blood Narrative The following orders were created for panel order COMPLETE BLOOD COUNT WITH DIFFERENTIAL. Procedure Abnormality Status --------- ------ LAB ONLY-COMPLETE BLOOD ...[[id number]]AbnormalFinal result LAB ONLY-MANUAL DIFFEREN...[[id number]]AbnormalFinal result Please view results for these tests on the individual orders. HEMOGLOBIN (06/14/2017 12:17 AM) Component Value Ref Range Hemoglobin 8.8 (L) 13.5 - 17.5 g/dL Specimen Performing Laboratory Blood [address] [address] TYPE AND SCREEN (06/14/2017 12:17 AM) Component Value Ref Range ABO Type B Rh Type Positive Expiration Date 06/17/2017 23:59 Antibody Screen Negative Comment: Allogenic Red Cells Available 06/14/17 Specimen Performing Laboratory Blood [facility] [address] [place] [address] XRAY CHEST 1V - (06/13/2017 4:33 PM) Specimen Performing Laboratory PS360 Narrative Patient Name: DARYL OLVERA Date of :1950 Procedure: XRAY CHEST 1 VIEW Date of Service: 06/13/2017 EXAM: XRAY CHEST 1 VIEW INDICATION:follow up of COPD. COMPARISON(S): 06/12/2017 FINDINGS: Again noted is the area of density in the upper lobe on the right, stable since previous exam. No pneumothorax. No focal consolidative process is identified. Finalized by: Juvencio Kenney MD on 06/13/2017 4:43 PM Patient/Procedure Information: [facility] MRN/JESUS: [id number] Order Number: [id number] Accession Number: [id number] Ordering Provider: MAX CARDONA Authorizing Provider: MAX CARDONA Procedure Note Interface, Radiantres - 06/13/2017 4:45 PM CDT Patient Name: ADRYL OLVERA Date of : 1950 Procedure: XRAY CHEST 1 VIEW Date of Service: 06/13/2017 EXAM: XRAY CHEST 1 VIEW INDICATION:follow up of COPD. COMPARISON(S): 06/12/2017 FINDINGS: Again noted is the area of density in the upper lobe on the right, stable since previous exam. No pneumothorax. No focal consolidative process is identified. Finalized by: Juvencio Kenney MD on 06/13/2017 4:43 PM Patient/Procedure Information: [facility] MRN/[facility]ES[facility]: [id number] Order Number: [id number] Accession Number: [id number] Ordering Provider: MAX CARDONA Authorizing Provider: MAX CARDONA C-REACTIVE PROTEIN QUANTITATIVE (06/13/2017 4:51 AM) Component Value Ref Range CRP 154.3 (H) 0.0 - 8.0 mg/L Specimen Performing Laboratory Blood [address] [place] [address] LAB ONLY-COMPLETE BLOOD COUNT WITH DIFFERENTIAL (06/13/2017 4:51 AM) Component Value Ref Range WBC 19.1 (H) 4.0 - 11.0 K/uL RBC 3.36 (L) 4.40 - 5.80 M/uL Hemoglobin 8.9 (L) 13.5 - 17.5 g/dL Hematocrit 28.0 (L) 40.0 - 50.0 % MCV 83.3 80.0 - 98.0 fL MCH 26.5 25.5 - 34.0 pg MCHC 31.8 31.5 - 36.5 g/dL RDW-CV 15.4 11.5 - 15.5 % RDW-SD 46.9 35.5 - 50.0 fl Platelet Count 324 140 - 400 K/uL MPV 9.8 8.5 - 12.0 fL Seg Neut Absolute 15.7 (H) 1.8 - 8.0 K/uL Lymphocytes Absolute 1.2 0.8 - 4.1 K/uL Monocytes Absolute 1.7 (H) 0.0 - 1.0 K/uL Eosinophils Absolute 0.0 0.0 - 0.7 K/uL Basophil Absolute 0.0 0.0 - 0.2 K/uL Immature Granulocyte Absolute 0.50 (H) 0.00 - 0.06 K/uL Neutrophils Abs. (Segs and Bands) 48239 /uL Neutrophils Percent 82.3 % Lymphocytes Percent 6.4 % Monocytes Percent 8.6 % Immature Granulocyte Percent 2.6 % Eosinophils Percent 0.0 % Basophil Percent 0.1 % Specimen Performing Laboratory Blood [address] [address] BASIC METABOLIC PANEL (06/13/2017 4:51 AM) Component Value Ref Range Glucose 126 (H) 70 - 100 mg/dL BUN 8 6 - 22 mg/dL Creatinine 0.60 (L) 0.80 - 1.30 mg/dL BUN/Creatinine Ratio 13.3 10.0 - 25.0 Sodium 137 135 - 145 meq/L Potassium 4.2 3.5 - 5.3 meq/L Chloride 99 99 - 110 meq/L CO2 32 (H) 20 - 29 meq/L Anion Gap with K 10 6 - 20 meq/L Calcium 9.2 8.5 - 10.5 mg/dL Age 66 Years eGFR Non- >90 >=60 mL/min/1.73m2 eGFR >90 >=60 mL/min/1.73m2 Specimen Performing Laboratory Blood [address] [place] [address] COMPLETE BLOOD COUNT WITH DIFFERENTIAL (06/13/2017 4:51 AM) Specimen Performing Laboratory Blood Narrative The following orders were created for panel order COMPLETE BLOOD COUNT WITH DIFFERENTIAL. Procedure Abnormality Status --------- ------ LAB ONLY-COMPLETE BLOOD ...[[id number]]AbnormalFinal result Please view results for these tests on the individual orders. BLOOD GASES ARTERIAL (06/12/2017 4:25 PM) Component Value Ref Range pH Arterial 7.45 7.35 - 7.45 pCO2 Arterial 46 (H) 35 - 45 mmHg pO2 Arterial 62 (L) 80 - 100 mmHg Base Excess Arterial 7 (H) -2 - 2 meq/L HCO3 (Bicarb) 32 (H) 20 - 29 mmol/L O2 Sat % Arterial 91 (L) 95 - 98 % Carbon Monoxide 1.1 0.0 - 3.0 % Methemoglobin 0.5 0.0 - 3.0 % O2 Content Arterial 18.4 17.0 - 20.0 Vol% p50 24.83 (L) 25.00 - 29.00 mmHg Allens Test Positive Collection Site Arterial Lt radial O2 Source Nasal Cannula Specimen Performing Laboratory Blood - Arterial [facility] [address] [place] [address] Narrative NC @ 1 LPM CULTURE BACTERIAL, RESPIRATORY WITH GRAM STAIN (06/12/2017 3:20 PM) Component Value Ref Range Culture Result Culture Result Rare Pseudomonas aeruginosa (!) Gram Stain Few (1 to 9/LPF) Squamous epithelial cells Gram Stain Few (1 to 9/LPF) WBC's Gram Stain Few (1 to 5/OIF) Gram positive bacilli Gram Stain Few (1 to 5/OIF) Gram positive cocci in pairs, chains and clusters Gram Stain Rare (less than 1/OIF) Gram negative bacilli Specimen Performing Laboratory Respiratory - Sputum [address] [address] Narrative With normal angela Organism Antibiotic Method Susceptibility Pseudomonas aeruginosa Cefepime TRAY 8 ug/mL: Sensitive Pseudomonas aeruginosa Ciprofloxacin TRAY <=0.25 ug/mL: Sensitive Pseudomonas aeruginosa Gentamicin TRAY 2 ug/mL: Sensitive Pseudomonas aeruginosa Piperacillin/Tazobactam TRAY 8 ug/mL: Sensitive Pseudomonas aeruginosa Tobramycin TRAY <=1 ug/mL: Sensitive CULTURE, BLOOD (06/12/2017 3:07 PM)Only the most recent of2 resultswithin the time period is included. Component Value Ref Range Culture Result No growth at 5 days Specimen Performing Laboratory Blood [address] [place] [address] LAB ONLY-MANUAL DIFFERENTIAL (06/12/2017 2:51 PM) Component Value Ref Range Neutrophils Abs. (Segs and Bands) [address] /uL Seg Neut Absolute 16.4 (H) 1.8 - 8.0 K/uL Band Absolute 0.4 0.0 - 0.7 K/uL Lymphocytes Absolute 0.8 0.8 - 4.1 K/uL Monocytes Absolute 1.4 (H) 0.0 - 1.0 K/uL Metamyelocyte Absolute 0.6 (H) 0.0 - 0.1 K/uL Myelocyte Absolute 0.2 (H) 0.0 - 0.0 K/uL Neutrophils Percent 83.0 % Band Percent 2.0 % Lymphocytes Percent 4.0 % Monocytes Percent 7.0 % Metamyelocytes Percent 3.0 % Myelocyte Percent 1.0 % Platelet Morphology Normal RBC Morphology Normal Specimen Performing Laboratory Blood [address] [place] [address] LAB ONLY-COMPLETE BLOOD COUNT WITH DIFFERENTIAL (06/12/2017 2:51 PM) Component Value Ref Range WBC 19.7 (H) 4.0 - 11.0 K/uL RBC 3.46 (L) 4.40 - 5.80 M/uL Hemoglobin 9.3 (L) 13.5 - 17.5 g/dL Hematocrit 28.9 (L) 40.0 - 50.0 % MCV 83.5 80.0 - 98.0 fL MCH 26.9 25.5 - 34.0 pg MCHC 32.2 31.5 - 36.5 g/dL RDW-CV 15.0 11.5 - 15.5 % RDW-SD 46.0 35.5 - 50.0 fl Platelet Count 350 140 - 400 K/uL MPV 9.9 8.5 - 12.0 fL Specimen Performing Laboratory Blood [address] [place] [address] INFLUENZA A AND B NUCLEIC ACID DETECTION (06/12/2017 2:51 PM) Component Value Ref Range Influenza A Nucleic Acid Detection Not Detected Not Detected Influenza B Nucleic Acid Detection Not Detected Not Detected Specimen Performing Laboratory Nasopharyngeal - Nasopharynx [address] [place] [address] Narrative This assay is a diagnostic test for the rapid and qualitative detection of Influenza A and Influenza B nucleic acids. This test was performed by polymerase chain reaction (PCR) on the GeneXpert instrument. LACTIC ACID (06/12/2017 2:51 PM) Component Value Ref Range Lactic Acid 1.2 0.5 - 2.2 mmol/L Specimen Performing Laboratory Blood [address] [address] COMPREHENSIVE METABOLIC PANEL (06/12/2017 2:51 PM) Component Value Ref Range Glucose 112 (H) 70 - 100 mg/dL BUN 8 6 - 22 mg/dL Creatinine 0.57 (L) 0.80 - 1.30 mg/dL BUN/Creatinine Ratio 14.0 10.0 - 25.0 Sodium 135 135 - 145 meq/L Potassium 3.8 3.5 - 5.3 meq/L Chloride 98 (L) 99 - 110 meq/L CO2 29 20 - 29 meq/L Anion Gap with K 12 6 - 20 meq/L Calcium 9.2 8.5 - 10.5 mg/dL Protein Total 6.2 6.0 - 8.2 g/dL Albumin 2.9 (L) 3.5 - 5.0 g/dL Alkaline Phosphatase 146 30 - 150 U/L AST - SGOT 68 (H) 0 - 35 U/L ALT - SGPT 107 (H) 0 - 55 U/L Bilirubin Total 0.2 0.2 - 1.2 mg/dL Corrected Calcium 10.1 8.5 - 10.5 mg/dL Age 66 Years eGFR Non- >90 >=60 mL/min/1.73m2 eGFR >90 >=60 mL/min/1.73m2 Specimen Performing Laboratory Blood [address] [address] COMPLETE BLOOD COUNT WITH DIFFERENTIAL (06/12/2017 2:51 PM) Specimen Performing Laboratory Blood Narrative The following orders were created for panel order COMPLETE BLOOD COUNT WITH DIFFERENTIAL. Procedure Abnormality Status --------- ------ LAB ONLY-COMPLETE BLOOD ...[[id number]]AbnormalFinal result LAB ONLY-MANUAL DIFFEREN...[[id number]]AbnormalFinal result Please view results for these tests on the individual orders. 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 Enlarged prostate with urinary obstruction Hypertrophy of prostate with urinary obstruction and other lower urinary tract symptoms (LUTS) Lower urinary tract symptoms (LUTS) Other symptoms involving urinary system Paranoid schizophrenia Paranoid schizophrenia, unspecified condition MDD (recurrent major depressive disorder) in remission Major depressive disorder, recurrent episode, in partial or unspecified remission COPD (chronic obstructive pulmonary disease) Chronic airway obstruction, not elsewhere classified Chest pain, unspecified type Upper GI bleed Hemorrhage of gastrointestinal tract, unspecified Pulmonary emphysema, unspecified emphysema type Mild developmental delay Schizophrenia, paranoid Paranoid schizophrenia, unspecified condition Pseudomonas infection Pseudomonas infection in conditions classified elsewhere and of unspecified site Mass of upper lobe 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 albuterol-ipratropium (DUO-NEB) 2.5-0.5 mg/3 mL Given 06/19/2017 23:54 CDT 3 mL inhalation solution 3 mL 3 mL, Nebulization, Every four hours, First dose on Sat06/19/17 at 1240, Until Discontinued, 3 mL Given 06/20/2017 04:07 CDT 3 mL Given 06/20/2017 08:09 CDT 3 mL cefepime (MAXIPIME) 2000 mg/10 mL in Given 06/19/2017 13:31 CDT 2,000 mg 120 mL/hr sterile water IV syringe 2,000 mg, IV, at 120 mL/hr, Every eight hours, First dose on Sat06/17/17 at 2200, Until Discontinued, 10 mL Given 06/19/2017 20:58 CDT 2,000 mg 120 mL/hr Given 06/20/2017 05:45 CDT 2,000 mg 120 mL/hr dilTIAZem (CARDIZEM) tablet 30 mg Given 06/19/2017 18:11 CDT 30 mg 30 mg, Oral, Four times a day, First dose on Sat06/12/17 at 2125, Until Discontinued, Hold for SBP less than 100 Hold for HR less than 60 Given 06/19/2017 21:02 CDT 30 mg Given 06/20/2017 08:47 CDT 30 mg diphenhydrAMINE (BENADRYL) capsule 25 mg Given 06/17/2017 21:40 CDT 25 mg 25 mg, Oral, Bedtime, First dose on Sat06/12/17 at 2100, Until Discontinued Given 06/18/2017 21:08 CDT 25 mg Given 06/19/2017 21:02 CDT 25 mg enoxaparin (LOVENOX) subcutaneous injection Given 06/17/2017 21:41 CDT 40 mg solution 40 mg 40 mg, Subcutaneous, Bedtime, First dose on Sat06/12/17 at 2100, Until Discontinued, To avoid the loss of drug when using the 30 mg and 40 mg prefilled syringes, do not expel the air bubble from the syringe before the injection. Administration should be alternated between the left and right anterolateral and left and right posterolateral abdominal wall. The whole length of the needle should be introduced into a skin fold held between the thumb and forefinger; the skin fold should be held throughout the injection. To minimize bruising, do not rub the injection site after completion of the injection. Given 06/18/2017 21:08 CDT 40 mg Abdomen Left Lower TD Given 06/19/2017 21:02 CDT 40 mg ferrous sulfate (65 mg FE per 325 mg tablet) Given 06/19/2017 09:06 CDT 325 mg tablet 325 mg 325 mg, Oral, Two times a day, First dose on Sat06/16/17 at 0900, Until Discontinued Given 06/19/2017 21:02 CDT 325 mg Given 06/20/2017 08:48 CDT 325 mg finasteride (PROSCAR) tablet 5 mg Given 06/18/2017 09:13 CDT 5 mg 5 mg, Oral, Every morning, First dose on Landy 06/13/17 at 0900, Until Discontinued, This medication is a low risk cytotoxic drug. Wear 2 pairs of chemo gloves for administration. If unable to administer dose intact - contact pharmacy for other administration options. Dispose of empty packages in the yellow cytotoxic waste. Dispose of unused or partial packages in the black waste containers. Given 06/19/2017 09:07 CDT 5 mg Given 06/20/2017 08:48 CDT 5 mg heparin 100 units/ mL injection for heplock Given 06/19/2017 06:05 CDT 300 Units FLUSH 300 Units (3 mL), IV, Every twelve hours, First dose on Sat06/17/17 at 1700, Until Discontinued, 3 mL, Routine flush twice a day or after meds. Flush with 10 mL 0.9% Sodium Chloride followed by 300 units heparin Given 06/19/2017 18:11 CDT 300 Units Given 06/20/2017 05:48 CDT 300 Units heparin 100 units/ mL injection for heplock Given 06/17/2017 23:35 CDT 300 Units FLUSH 300 Units (3 mL), IV, PRN per parameter, Starting Sat06/17/17 at 1644, Until Discontinued, other (Specify), PICC sort line after meds, 3 mL, Routine flush twice a day or after meds. Flush with 10 mL 0.9% Sodium Chloride followed by 300 units heparin hydrophor ointment 1 application Given 06/19/2017 09:08 CDT 1 application 1 application, Apply externally, Two times a day, First dose on Sat06/12/17 at 2100, Until Discontinued, For use on diaper area, not total body. Given 06/19/2017 22:01 CDT 1 application Given 06/20/2017 08:48 CDT 1 application ipratropium (ATROVENT) 0.5 mg/2.5 mL inhalation Given 06/13/2017 21:11 CDT 0.5 mg soln 0.5 mg 0.5 mg, Nebulization, Every two hours prn, Starting Sat06/12/17 at 2049, Until Discontinued, shortness of breath, wheezing, 2.5 mL Given 06/19/2017 00:03 CDT 0.5 mg Given 06/19/2017 11:49 CDT 0.5 mg levalbuterol (XOPENEX) 0.63 MG/3ML inhalation Given 06/17/2017 13:01 CDT 0.63 mg soln 0.63 mg 0.63 mg, Nebulization, Every four hours prn, Starting 06/15/17 at 1055, Until Discontinued, For shortness of breath and wheezing., 3 mL OLANZapine (zyPREXA) tablet 15 mg Given 06/19/2017 09:07 CDT 15 mg 15 mg, Oral, Two times a day, First dose on Sat06/12/17 at 2100, Until Discontinued Given 06/19/2017 21:02 CDT 15 mg Given 06/20/2017 08:47 CDT 15 mg omeprazole (priLOSEC) capsule 20 mg Given 06/19/2017 06:17 CDT 20 mg 20 mg, Oral, Two times a day before meals, First dose on Sat06/14/17 at 1830, Until Discontinued, Swallow cap whole. Do not crush, chew or open. Given 06/19/2017 18:11 CDT 20 mg Given 06/20/2017 05:47 CDT 20 mg predniSONE tablet 20 mg Given 06/20/2017 08:48 CDT 20 mg 20 mg, Oral, Daily, First dose on Sat06/20/17 at 0900, Until Discontinued psyllium (METAMUCIL) packet 1 packet Given 06/18/2017 09:13 CDT 1 packet 1 packet, Oral, DAILY, First dose on Sat06/13/17 at 0900, Until Discontinued Given 06/19/2017 09:07 CDT 1 packet Given 06/20/2017 08:47 CDT 1 packet senna-docusate sodium (SENOKOT-S;PERICOLACE) Given 06/20/2017 06:03 CDT 2 tablets tablet 2 tablet 2 tablet, Oral, Two times a day prn, Starting Sat06/12/17 at 1803, Until Discontinued, constipation, Use FIRST for constipation unless patient cannot take oral medications. sertraline (ZOLOFT) tablet 200 mg Given 06/18/2017 09:13 CDT 200 mg 200 mg, Oral, Every morning, First dose on Landy 06/13/17 at 0900, Until Discontinued Given 06/19/2017 09:06 CDT 200 mg Given 06/20/2017 08:47 CDT 200 mg sodium chloride 0.9% prefilled 10 mL syringe Given 06/19/2017 06:06 CDT 10 mL (Materials Management Item) 10 mL 10 mL, IV, Every twelve hours, First dose on Sat06/17/17 at 1700, Until Discontinued, 10 mL, Routine flush twice a day or after meds. Flush with 10 mL 0.9% Sodium Chloride followed by 300 units heparin Given 06/19/2017 18:11 CDT 10 mL Given 06/20/2017 05:49 CDT 10 mL tamsulosin (FLOMAX) capsule 0.4 mg Given 06/18/2017 09:13 CDT 0.4 mg 0.4 mg, Oral, Every morning, First dose on Sat06/13/17 at 0900, Until Discontinued, Swallow cap whole. Do not crush, chew or open. Given 06/19/2017 09:06 CDT 0.4 mg Given 06/20/2017 08:47 CDT 0.4 mg triamcinolone acetonide (KENALOG,ARISTOCORT) 0.5 % Given 06/17/2017 21:40 CDT cream Apply externally, Two times a day Sat, First dose on Sat06/12/17 at 2100, Until Discontinued, Formulary Substitute for Clobetasol 0.05% Given 06/19/2017 09:08 CDT Given 06/19/2017 22:01 CDT Medication Order MAR Action Action Date Dose Rate Site albuterol (PROVENTIL) (2.5 mg/3mL) Given 06/12/2017 16:16 CDT 2.5 mg 0.083% inhalation soln 2.5 mg 2.5 mg, Nebulization, Now, 1 dose, Sat06/12/17 at 1605, 3 mL albuterol-ipratropium (DUO-NEB) 2.5-0.5 mg/3 mL Given 06/12/2017 15:02 CDT 3 mL inhalation solution 3 mL 3 mL, Nebulization, Now, 1 dose, Sat06/12/17 at 1450, 3 mL aspirin chewable tablet 81 mg Given 06/13/2017 09:42 CDT 81 mg 81 mg, Oral, DAILY, First dose on Sat06/13/17 at 0900, Until Discontinued Given 06/14/2017 08:48 CDT 81 mg Given 06/15/2017 10:27 CDT 81 mg cefepime (MAXIPIME) 2000 mg/10 mL in Given 06/16/2017 13:43 CDT 2,000 mg 120 mL/hr sterile water IV syringe 2,000 mg, IV, at 120 mL/hr, Every twelve hours, First dose on Sat06/13/17 at 1430, Until Discontinued, 10 mL Given 06/17/2017 03:00 CDT 2,000 mg 120 mL/hr Given 06/17/2017 14:09 CDT 2,000 mg 120 mL/hr cefTRIAXone (ROCEPHIN) 1000 mg/10 mL IV Given 06/12/2017 23:53 CDT 1,000 mg 40 mL/hr syringe in sterile water 1,000 mg, IV, at 40 mL/hr, Every twenty four hours, First dose on Sat06/12/17 at 1835, Until Discontinued, 10 mL, Flush IV line with normal saline prior and post administration. Do not administer with calcium containing solutions (example: Lactated Ringer's, TPN with calcium, etc) as these are not compatible with ceftriaxone. doxycycline (ADOXA) tablet 100 mg Given 06/12/2017 23:57 CDT 100 mg 100 mg, Oral, Two times a day, 10 doses, First dose on 06/12/17 at 1805, Last dose on Sat06/16/17 at 2100, Administer STAT. Do not hold for cultures. Given 06/13/2017 09:43 CDT 100 mg formoterol (PERFOROMIST) 20 MCG/2ML inhalation Given 06/18/2017 08:11 CDT 20 mcg solution 20 mcg 20 mcg, Nebulization, Two times a day, First dose on 06/15/17 at 2000, Until Discontinued, 2 mL Given 06/18/2017 19:58 CDT 20 mcg Given 06/19/2017 08:45 CDT 20 mcg iohexol (OMNIPAQUE) (140 mg/mL) 50 mL in water Given 06/15/2017 12:09 CDT 250 mL 950 mL oral contrast (adult) 250 mL, Oral, Every thirty minutes, 4 doses, First dose on 06/15/17 at 1130, Last dose on 06/15/17 at 1300, 1,000 mL, Swirl prior to giving orally. *Pharmacy preparing for inpatients* Omnipaque 50 mL in 1000 mL Sterile Water Dose: 250 mL 120 minutes, 90 minutes, 60 minutes and 30 minutes prior to scan Given 06/15/2017 12:38 CDT 250 mL Given 06/15/2017 13:09 CDT 250 mL iohexol (OMNIPAQUE) 350 mg/mL solution 100 mL Given 06/15/2017 13:54 CDT 91 mL 100 mL, IV, Now imaging, 1 dose, Starting 06/15/17 at 1354, Until 06/15/17 at 1354, 100 mL ipratropium (ATROVENT) 0.5 mg/2.5 mL inhalation Given 06/14/2017 20:34 CDT 0.5 mg soln 0.5 mg 0.5 mg, Nebulization, Every four hours, First dose on 06/12/17 at 2050, Until Discontinued, 2.5 mL Given 06/15/2017 04:02 CDT 0.5 mg Given 06/15/2017 08:25 CDT 0.5 mg ipratropium (ATROVENT) 0.5 mg/2.5 mL inhalation Given 06/18/2017 19:58 CDT 0.5 mg soln 0.5 mg 0.5 mg, Nebulization, Every six hours, First dose on 06/15/17 at 1400, Until Discontinued, 2.5 mL Given 06/19/2017 02:13 CDT 0.5 mg Given 06/19/2017 08:45 CDT 0.5 mg levalbuterol (XOPENEX) 0.63 MG/3ML inhalation Given 06/14/2017 20:34 CDT 0.63 mg soln 0.63 mg 0.63 mg, Nebulization, Every four hours, First dose on Landy 06/13/17 at 0005, Until Discontinued, 3 mL Given 06/15/2017 04:02 CDT 0.63 mg Given 06/15/2017 08:25 CDT 0.63 mg meropenem (MERREM) 1,000 mg OP/ED Infusion Started 06/12/2017 16:58 CDT 1, 000 mg in sodium chloride 0.9% 100 mL 1,000 mg, IV, Now, 1 dose, Sat06/12/17 at 1605, 120 mL, Administer first dose over 30 minutes. methylPREDNISolone sod succ (SOLU-medrol) Given 06/12/2017 14:56 CDT 125 mg injection 125 mg 125 mg, IV, One time, 1 dose, Sat06/12/17 at 1550, 2 mL methylPREDNISolone sod succ (SOLU-medrol) Given 06/13/2017 06:06 CDT 40 mg injection 40 mg 40 mg, IV, Every eight hours, First dose on Landy 06/13/17 at 0600, Until Discontinued, 1 mL Given 06/13/2017 15:05 CDT 40 mg methylPREDNISolone sod succ (SOLU-medrol) Given 06/14/2017 04:42 CDT 40 mg injection 40 mg 40 mg, IV, Every twelve hours, First dose on Sat06/14/17 at 0400, Until Discontinued, 1 mL Given 06/14/2017 15:17 CDT 40 mg Given 06/15/2017 03:25 CDT 40 mg metoprolol tartrate (LOPRESSOR) IV solution 5 mg Given 06/12/2017 21:09 CDT 5 mg 5 mg, IV, Bolus, 1 dose, Sat06/12/17 at 2205, 5 mL pantoprazole (PROTONIX) for injection 40 mg vial Given 06/14/2017 00:28 CDT 40 mg 40 mg, IV, Two times a day, 6 doses, First dose on Sat06/14/17 at 0005, Last dose on Sat06/16/17 at 0900, Dilute 40 mg vial with 10 mL 0.9% sodium chloride=4 mg/mL. Give dose IV push over at least 2 minutes. Given 06/14/2017 08:49 CDT 40 mg predniSONE tablet 40 mg Given 06/17/2017 08:37 CDT 40 mg 40 mg, Oral, Daily, First dose on Sat06/15/17 at 1300, Until Discontinued Given 06/18/2017 09:13 CDT 40 mg Given 06/19/2017 09:06 CDT 40 mg raNITIdine (ZANTAC-75) tablet 75 mg Given 06/13/2017 09:46 CDT 75 mg 75 mg, Oral, Two times a day, First dose on Sat06/12/17 at 2100, Until Discontinued Given 06/13/2017 21:59 CDT 75 mg Given 06/14/2017 08:47 CDT 75 mg sodium chloride 0.9% (bolus) IV solution 500 mL Given 06/14/2017 00:31 CDT 500 mL 500 mL, IV, Bolus, 1 dose, Sat06/14/17 at 0100, 500 mL sodium chloride 0.9% IV solution New Bag/Tubing 06/14/2017 16:26 CDT 500 mL/hr IV, at 500 mL/hr, Continuous, Starting Sat06/14/17 at 1620, Until Sat06/14/17 at 1729, 1,000 mL, Pre-Procedure (GI), procedural area to release sodium chloride 7% (hypertonic saline) inhalation Given 06/12/2017 15:02 CDT 4 mL solution 4 mL 4 mL, Nebulization, One time, 1 dose, 06/12/17 at 1550 vancomycin 1,250 mg in sodium OP/ED Infusion Started 06/12/2017 17:31 CDT 1, 250 mg chloride 0.9% 250 mL 1,250 mg, IV, One time, 1 dose, 06/12/17 at 1640, 262.5 mL, Vanco Dose 1250 mg- Total Volume: 288 mL @ 192 mL/hr x 1.5 hours in this encounter
[2017-06-24] MEDS: diphenhydrAMINE 25 MG Cap PO SCH (20:48)
[2017-06-25] MEDS: Cefepime 2 GM Vial IVPUSH SCH ×3 (05:31→21:12)
[2017-06-25] MEDS: Sodium Chloride 0.9% 10 ML Syringe FLUSH SCH ×4 (05:32→21:13)
[2017-06-25] MEDS: Ipratropium 0.02% 0.5 MG/2.5 ML Neb Soln INH SCH ×5 (05:38→21:04)
[2017-06-25] MEDS: Pantoprazole 40 MG Tab.CR PO SCH ×2 (06:34→17:49)
[2017-06-25] MEDS: Levalbuterol HCl 1.25 MG/3 ML Neb INH SCH ×4 (07:05→21:05)
[2017-06-25] MEDS: Budesonide 0.5 MG/2 ML Neb Susp INH SCH ×2 (08:34→21:09)
[2017-06-25] MEDS: Arformoterol 15 MCG/2 ML Neb Soln INH SCH ×2 (08:34→21:08)
[2017-06-25] MEDS: Mineral Oil/Petrolatum,Hydrophilic Ointment 100 GM Jar TOP SCH ×2 (09:04→21:10)
[2017-06-25] MEDS: Clobetasol 0.05% Crm 15 GM Tube TOP SCH ×2 (09:05→21:03)
[2017-06-25] MEDS: Sertraline 100 MG Tab PO SCH (09:06)
[2017-06-25] MEDS: predniSONE 10 MG Tab PO SCH (09:06)
[2017-06-25] MEDS: Ferrous Sulfate 325 MG Tab PO SCH ×2 (09:06→21:08)
[2017-06-25] MEDS: Tamsulosin 0.4 MG Cap.ER PO SCH (09:07)
[2017-06-25] MEDS: OLANZapine 5 MG Tab PO SCH ×2 (09:07→21:09)
[2017-06-25] MEDS: Famotidine 10 MG Tab PO SCH ×2 (09:07→21:09)
[2017-06-25] MEDS: Finasteride 5 MG Tab PO SCH (09:08)
[2017-06-25] MEDS: Diltiazem 120 MG Cap.CD PO SCH (09:08)
[2017-06-25] MEDS: diphenhydrAMINE 25 MG Cap PO SCH (21:08)
[2017-06-26] MEDS: Sodium Chloride 0.9% 10 ML Syringe FLUSH SCH ×2 (06:30→06:43)
[2017-06-26] MEDS: Cefepime 2 GM Vial IVPUSH SCH ×3 (06:32→21:19)
[2017-06-26] MEDS: Ipratropium 0.02% 0.5 MG/2.5 ML Neb Soln INH SCH ×4 (07:05→21:07)
[2017-06-26] MEDS: Levalbuterol HCl 1.25 MG/3 ML Neb INH SCH ×4 (07:06→21:08)
[2017-06-26] MEDS: predniSONE 10 MG Tab PO SCH (08:03)
[2017-06-26] MEDS: Clobetasol 0.05% Crm 15 GM Tube TOP SCH ×2 (08:03→21:12)
[2017-06-26] MEDS: Pantoprazole 40 MG Tab.CR PO SCH ×2 (08:03→18:35)
[2017-06-26] MEDS: Arformoterol 15 MCG/2 ML Neb Soln INH SCH ×2 (08:36→21:18)
[2017-06-26] MEDS: Budesonide 0.5 MG/2 ML Neb Susp INH SCH ×2 (08:36→21:08)
[2017-06-26] MEDS: Ferrous Sulfate 325 MG Tab PO SCH ×2 (09:02→21:18)
[2017-06-26] MEDS: Finasteride 5 MG Tab PO SCH (09:03)
[2017-06-26] MEDS: Famotidine 10 MG Tab PO SCH ×2 (09:03→21:18)
[2017-06-26] MEDS: OLANZapine 5 MG Tab PO SCH ×2 (09:03→21:18)
[2017-06-26] MEDS: Sertraline 100 MG Tab PO SCH (09:03)
[2017-06-26] MEDS: Tamsulosin 0.4 MG Cap.ER PO SCH (09:03)
[2017-06-26] MEDS: Diltiazem 120 MG Cap.CD PO SCH (09:04)
[2017-06-26] MEDS: Mineral Oil/Petrolatum,Hydrophilic Ointment 100 GM Jar TOP SCH ×2 (09:06→21:13)
[2017-06-26] MEDS: diphenhydrAMINE 25 MG Cap PO SCH (21:15)
[2017-06-27] MEDS: Levalbuterol HCl 1.25 MG/3 ML Neb INH SCH ×2 (07:04→10:50)
[2017-06-27] MEDS: Ipratropium 0.02% 0.5 MG/2.5 ML Neb Soln INH SCH ×2 (07:04→10:48)
[2017-06-27] MEDS: Pantoprazole 40 MG Tab.CR PO SCH (07:45)
[2017-06-27] MEDS: Diltiazem 120 MG Cap.CD PO SCH (08:21)
[2017-06-27] MEDS: Tamsulosin 0.4 MG Cap.ER PO SCH (08:21)
[2017-06-27] MEDS: Ferrous Sulfate 325 MG Tab PO SCH (08:21)
[2017-06-27] MEDS: Finasteride 5 MG Tab PO SCH (08:22)
[2017-06-27] MEDS: Famotidine 10 MG Tab PO SCH (08:22)
[2017-06-27] MEDS: OLANZapine 5 MG Tab PO SCH (08:22)
[2017-06-27] MEDS: Sertraline 100 MG Tab PO SCH (08:22)
[2017-06-27 08:24] VITALS: BP 127/69
[2017-06-27] MEDS: Mineral Oil/Petrolatum,Hydrophilic Ointment 100 GM Jar TOP SCH (08:26)
[2017-06-27] MEDS: Budesonide 0.5 MG/2 ML Neb Susp INH SCH (08:57)
[2017-06-27] MEDS: Arformoterol 15 MCG/2 ML Neb Soln INH SCH (08:57)
--- NOTE | 2017-06-27 14:17 | DISCH ---
DISCHARGE DATE: 06/27/2017 REASON FOR VISIT: 1. Pseudomonas aeruginosa infection. 2. Lung mass. 3. Adrenal gland mass. 4. Neutrophilic leukocytosis. 5. Esophagitis. 6. Anemia. 7. History of paroxysmal supraventricular tachycardia. SECONDARY DIAGNOSES: 1. Traumatic brain injury. 2. Schizophrenia. 3. Hyperlipidemia. 4. Chronic obstructive pulmonary disease. 5. Atherosclerotic vascular disease. 6. Psoriasis. 7. Below-knee amputation. 8. History of urinary tract infection. 9. Enlarged prostate. 10.Gastroesophageal reflux disease. 11.Schizophrenia. DISCHARGE DIAGNOSES: 1. Traumatic brain injury. 2. Schizophrenia. 3. Hyperlipidemia. 4. Chronic obstructive pulmonary disease. 5. Atherosclerotic vascular disease. 6. Psoriasis. 7. Below-knee amputation. 8. History of urinary tract infection. 9. Enlarged prostate. 10.Gastroesophageal reflux disease. 11.Schizophrenia. BRIEF HISTORY AND HOSPITAL COURSE: This is a 66-year-old male, admitted for swing bed for IV antibiotic and physical therapy. During the hospital, he did well and finished his course of antibiotics on the . He was discharged home on the 3rd today on the following medications: 1. Acetaminophen 650 mg q.4 hours p.r.n. 2. Pulmicort 0.5 mg b.i.d. 3. Calcium carbonate 500 mg q.i.d. 4. Clobetasol and coal tar to apply as needed. 5. Pepcid 10 mg b.i.d. 6. Ferrous sulfate 325 mg b.i.d. 7. Proscar 5 mg daily. 8. Atrovent inhaled q.i.d. p.r.n. 9. Levalbuterol or Xopenex q.4 hours p.r.n. 10.Mineral oil topically, b.i.d. 11.Nitroglycerin q.5 minutes p.r.n. for chest pain. 12.Zyprexa 50 mg a day. 13.Omeprazole 20 mg daily. 14.Sertraline 200 mg a day. 15.Flomax 0.4 mg daily. FOLLOWUP: [facility] I discontinued the Cardizem because his heart rate remained normal throughout the hospital stay. Please note that he will go home with Home Health and I spent more than 35 minutes in the discharge of the patient. /[id number] PIERRE/EUSEBIO
== END 2017-06-27 13:32 | disposition home health service (06) | DRG 868 ==
LOC: FB.MS 06-20 13:46
PROVIDERS: ADMIT Family Medicine; ATTEND Family Medicine
DX: A49.8 Other bacterial infections of unspecified site (principal); F20.0 Paranoid schizophrenia; C34.90 Malignant neoplasm of unspecified part of unspecified bronchus or lung; Z66 Do not resuscitate; D72.9 Disorder of white blood cells, unspecified; Z87.820 Personal history of traumatic brain injury; E78.5 Hyperlipidemia, unspecified; J44.9 Chronic obstructive pulmonary disease, unspecified; R91.8 Other nonspecific abnormal finding of lung field; E27.9 Disorder of adrenal gland, unspecified; Z99.81 Dependence on supplemental oxygen; F32.9 Major depressive disorder, single episode, unspecified; N40.1 Benign prostatic hyperplasia with lower urinary tract symptoms; N39.498 Other specified urinary incontinence; R33.8 Other retention of urine; L40.9 Psoriasis, unspecified; K21.9 Gastro-esophageal reflux disease without esophagitis; Z87.891 Personal history of nicotine dependence; Z86.79 Personal history of other diseases of the circulatory system; D64.9 Anemia, unspecified; K20.9 Esophagitis, unspecified; Z89.511 Acquired absence of right leg below knee; H90.5 Unspecified sensorineural hearing loss; Z88.0 Allergy status to penicillin; Z88.8 Allergy status to other drugs, medicaments and biological substances
CPT/HCPCS: 36415; 51798; 80048; 81001; 84484; 85025; 93005; 94640; 97162-GP; 97165-GO; 97530-GO; 97530-GP; 97535-GO; A9270-GY; J0692; J1642; J7050; J7605; J7612

== ENCOUNTER 2017-07-03 15:24 | Inpatient (IN) | payer MEDICARE, MEDICAID ==
[2017-07-03] MEDS ORDERED: Ondansetron 4 MG Tab.DIS PO PRN (15:41)
[2017-07-03] MEDS: Heparin Sodium 10 Units/ML 5 ML Syringe FLUSH ONE ×3 (17:10→19:43)
[2017-07-03] MEDS: Sodium Chloride 0.9% 10 ML Syringe FLUSH PRN ×4 (17:10→23:07)
--- NOTE | 2017-07-03 17:11 | PCM.PRNOTE ---
- Free Text/Narrative Note: R subclavian line placed at request of hospitalist Dr Norman pt with dx of RUL mass on chest CT which is only barely visible on plain film, pt tx'ed x 3w at [facility] for pneumonia, then transferred here to a swing bed. He was d/c'ed to his [facility] 6d ago. He went to the clinic today with inc'd SOB and sent from there to hospital as a direct admit by Dr Terrell. Pt's hemoglobin is 6.8 today, down 2 points from 1w ago, peripheral access could not be obtained Pt alert and conversant, talking in complete sentences, cooperative. with pt in [facility] the skin was prep'ed with Hibclens, then Betadaine x 2 , removed with alc prep x several 1% lido local used with #27 needle, a finder needle was passed twice under the clavicle towards the jugular notch without success additional lido used for a 2nd entry site 1.5 cm more lateral and needle passed parallel to and under the clavicle just superior to the first pass, still no blood return, however blood oozed out the skin on removal of the needle, a skin plug was expressed from the end of the finder needle, which was reinserted in the same path and blood return was obtained the J-wire was advanced, a small incision of 3 mm made in the skin, the dilator was passed, then the central line which had already been flushed x 3 with NS, the hub was sutured to the skin and a sterile dressing was applied all sharps were placed in the sharp container postprocedure CxR showed lungs well inflated, tip of catheter near RA, pulled back 4 cm and then sterilely resutured, new dressing applied ASSESS: R subclavian line placement PLAN: all lines flushed, secured, no complications
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
[2017-07-03] MEDS ORDERED: Sodium Chloride 0.9% 1,000 ML IV SCH (17:25)
[2017-07-03] MEDS ORDERED: Sodium Chloride 0.9% 250 ML IV SCH (17:30)
[2017-07-03] MEDS ORDERED: Phytonadione 5 MG in Sodium Chloride 0.9% 50 ML IV ONE (18:07)
[2017-07-03] MEDS ORDERED: Furosemide 40 MG/4 ML VIAL IVPUSH ONE (18:20)
[2017-07-03] MEDS: Sodium Chloride 0.9% 1,000 ML IV SCH (18:25)
[2017-07-03] MEDS ORDERED: Heparin Sodium 10 Units/ML 5 ML Syringe FLUSH ONE (19:18)
[2017-07-03] MEDS: Albuterol/Ipratropium 3.0-0.5 MG/3 ML Neb Soln NEB SCH (22:01)
[2017-07-03] MEDS: Heparin Sodium 10 Units/ML 5 ML Syringe FLUSH SCH (23:08)
[2017-07-04] MEDS ORDERED: Furosemide 40 MG/4 ML VIAL IVPUSH ONE (00:30)
[2017-07-04] MEDS ORDERED: Diltiazem 50 MG/10 ML SDV IVPUSH ONE (01:33)
[2017-07-04] MEDS ORDERED: Heparin Sodium 10 Units/ML 5 ML Syringe FLUSH ONE (06:31)
[2017-07-04] MEDS: Sodium Chloride 0.9% 10 ML Syringe FLUSH PRN ×3 (06:34→09:19)
[2017-07-04] MEDS: Heparin Sodium 10 Units/ML 5 ML Syringe FLUSH SCH (06:35)
[2017-07-04] MEDS ORDERED: Heparin Sodium 10 Units/ML 5 ML Syringe FLUSH SCH (07:00)
[2017-07-04] MEDS: Sodium Chloride 0.9% 1,000 ML IV SCH (07:42)
[2017-07-04] MEDS ORDERED: Piperacillin/Tazobactam 3.375 GM in Sodium Chloride 0.9% 50 ML IV SCH (08:00)
[2017-07-04] MEDS: Albuterol/Ipratropium 3.0-0.5 MG/3 ML Neb Soln NEB SCH ×2 (08:00→11:16)
[2017-07-04] MEDS ORDERED: Meropenem 1 GM in Sodium Chloride 0.9% 100 ML IV SCH (08:30)
[2017-07-04] MEDS ORDERED: Diltiazem 120 MG Cap.CD PO SCH (09:00)
[2017-07-04] MEDS ORDERED: Furosemide 40 MG/4 ML VIAL IVPUSH SCH (09:00)
[2017-07-04] MEDS ORDERED: Meropenem 1 GM SDV IV SCH (09:00)
[2017-07-04] MEDS: Heparin Sodium 10 Units/ML 5 ML Syringe FLUSH PRN (09:27)
[2017-07-04] MEDS ORDERED: Metoprolol Tartrate 5 MG/5 ML SDV IVPUSH PRN (10:02)
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
--- NOTE | 2017-07-04 15:07 | CR ---
INDICATION: Short of breath, subclavian line placement. CHEST: An AP upright view of the chest was obtained 07/03/2017. Comparison studies were not available at the time of dictation. The heart is normal in size. The aorta is tortuous with calcification in the arch. Overlying EKG leads are noted. Hyperaeration and slightly flattened diaphragm leaves suggest COPD. Heavy markings at the right lung base make it difficult to exclude minimal patchy bronchopneumonia. A subclavian line is noted from the right subclavian area with its tip in the area of the right atrium. Retraction of approximately 2 cm may be helpful for better positioning. MTDD
[2017-07-04 15:13] VITALS: BP 112/55
--- NOTE | 2017-07-04 15:20 | CR ---
INDICATION: Short of breath, tachypnea. CHEST: A single AP upright view of the chest was obtained 07/04/2017 at 0827 hours and compared with 07/03/2017 and 05/01/2017 examinations. There is an appearance of a nodular density in the right upper lung field, which measures approximately 27 mm. If no old chest x-rays are available for comparison, a CT examination without and with IV contrast may be warranted to further evaluate this finding. There remain heaving markings at the right lung base and at the costophrenic angle, making it difficult to exclude minimal patchy bronchopneumonia. A subclavian line is again noted from the right subclavian with its tip in good position at the level of the kathy. The lungs appear to be hyperaerated, suggesting COPD. The aorta is tortuous with calcification in the arch, as previously. The heart remains normal in size and shape. IMPRESSION: 1. Nodular mass in the right upper lung field. If no old films are available to show this lesion to be stable, CT without and with IV contrast may be warranted. It measures approximately 27 mm. 2. Cannot exclude minimal patchy pneumonia at the right lung base. 3. ASD aorta. 4. Probable COPD. MTDD
[2017-07-06] MEDS: Heparin Sodium 10 Units/ML 5 ML Syringe FLUSH PRN (01:08)
== END 2017-07-04 14:00 | DRG 811 ==
LOC: FB.MS 15:33 → FB.ICU 17:34
PROVIDERS: ADMIT Family Medicine; ATTEND Family Medicine
PROC: 05H533Z Insertion of Infusion Device into Right Subclavian Vein, Percutaneous Approach (ICD-10-PCS; principal; 2017-07-03)
PROC: 30233N1 Transfusion of Nonautologous Red Blood Cells into Peripheral Vein, Percutaneous Approach (ICD-10-PCS; 2017-07-03)
DX: D50.9 Iron deficiency anemia, unspecified (principal); R57.1 Hypovolemic shock; J96.01 Acute respiratory failure with hypoxia; J69.0 Pneumonitis due to inhalation of food and vomit; C79.72 Secondary malignant neoplasm of left adrenal gland; C79.71 Secondary malignant neoplasm of right adrenal gland; I47.1 Supraventricular tachycardia; C79.2 Secondary malignant neoplasm of skin; Z66 Do not resuscitate; J44.9 Chronic obstructive pulmonary disease, unspecified; E78.5 Hyperlipidemia, unspecified; E66.9 Obesity, unspecified; Z68.24 Body mass index [BMI] 24.0-24.9, adult; F70 Mild intellectual disabilities; J98.4 Other disorders of lung; H35.30 Unspecified macular degeneration; K29.70 Gastritis, unspecified, without bleeding; K21.0 Gastro-esophageal reflux disease with esophagitis; C80.1 Malignant (primary) neoplasm, unspecified; E87.70 Fluid overload, unspecified; R19.7 Diarrhea, unspecified; D72.828 Other elevated white blood cell count; N40.1 Benign prostatic hyperplasia with lower urinary tract symptoms; R33.8 Other retention of urine; G80.9 Cerebral palsy, unspecified; Z87.820 Personal history of traumatic brain injury; Z89.511 Acquired absence of right leg below knee; Z82.49 Family history of ischemic heart disease and other diseases of the circulatory system; Z79.899 Other long term (current) drug therapy; Z87.891 Personal history of nicotine dependence; Z87.01 Personal history of pneumonia (recurrent); Z99.81 Dependence on supplemental oxygen; Q64.9 Congenital malformation of urinary system, unspecified; Z79.2 Long term (current) use of antibiotics
CPT/HCPCS: 36415; 36430; 51798; 71045; 71046; 80053; 83735; 84100; 85025; 85610; 85651; 85730; 86850; 86900; 86901; 86920; 86922; 87040; 87045; 87046; 87081; 87425; 87427; 93005; 94640; J1642; J1940; J2185; J3430; J3490; J7030; J7050; J7620; P9016